=== PATIENT | male | born 1965 | race Caucasian/White ===

== ENCOUNTER 2017-02-02 15:14 | Emergency (ER) | payer BC ==
[2017-02-02] MEDS ORDERED: Tylenol #3 Tablet PO ONE (15:47)
[2017-02-02] MEDS ORDERED: Tylenol #3 Tablet ONE (15:49)
--- NOTE | 2017-02-02 15:49 | ERPHSYRPT ---
- History of Present Illness Time Seen by Provider: 02/02/17 15:38 Source: patient Exam Limitations: clinical condition Patient Subjective Stated Complaint: PT REPORTS PAIN TO LEFT ANKLE BEGINNING YESTERDAY-DENIES INJURY-DENIES NUMBNESS OR TINLGING Triage Nursing Assessment: PT PINK WARM ET DRY-NO OBVIOUS INJURY-NO BRUISING OR ABRASIONS-NO SWELLING OR REDNESS NOTED-PEDAL PULSE REGULAR Physician History: PATIENT WITH HISTORY OF HYPERTENSION AND ASTHMA COMPLAINS OF PAIN WITH SWELLING ABOVE LEFT ANKLE OVER THE PAST 3-4 DAYS, WORSE UPON WEIGHT BEARING. DENIES INJURY OR TRAUMA. Method of Injury: unknown Occurred: days ago Quality: constant, throbbing Severity of Pain-Max: moderate Severity of Pain-Current: moderate Lower Extremities Pain: leg: left, ankle: left Modifying Factors: Improves With: movement, other (WEIGHT BEARING) Allergies/Adverse Reactions: Antihistamines - Alkylamine Adverse Reaction (Verified 02/02/17 15:25) Tightness of Throat aspartame Adverse Reaction (Verified 02/02/17 15:25) Swelling of Tongue and Lips Home Medications: Telmisartan 40 mg PO DAILY 11/02/15 [History] Hx Tetanus, Diphtheria Vaccination/Date Given: Yes Hx Influenza Vaccination/Date Given: No Hx Pneumococcal Vaccination/Date Given: No Immunizations Up to Date: Yes - Review of Systems Constitutional: No Fever, No Chills Eyes: No Symptoms Ears, Nose, & Throat: No Symptoms Respiratory: No Cough, No Dyspnea Cardiac: No Chest Pain, No Edema, No Syncope Abdominal/Gastrointestinal: No Abdominal Pain, No Nausea, No Vomiting, No Diarrhea Genitourinary Symptoms: No Dysuria Musculoskeletal: Joint Pain, Joint Swelling, No Back Pain, No Neck Pain Skin: No Rash Neurological: No Dizziness, No Focal Weakness, No Sensory Changes Psychological: No Symptoms Endocrine: No Symptoms All Other Systems: Reviewed and Negative - Past Medical History Pertinent Past Medical History: Yes Neurological History: Migraines ENT History: No Pertinent History Cardiac History: Hypertension Respiratory History: Asthma, Pneumonia Endocrine Medical History: No Pertinent History Musculoskeletal History: Arthritis, Fractures, Rheumatoid Arthritis GI Medical History: Hernia History: No Pertinent History Psycho-Social History: No Pertinent History Male Reproductive Disorders: No Pertinent History Other Medical History: patient had surgery in June 2015 to repair a herniated disk in the neck and a titanium plate was put in. - Past Surgical History Past Surgical History: Yes Neuro Surgical History: No Pertinent History Cardiac: No Pertinent History Respiratory: No Pertinent History Gastrointestinal: No Pertinent History Genitourinary: No Pertinent History Musculoskeletal: No Pertinent History Male Surgical History: No Pertinent History Other Surgical History: Patient had T&A as a child 1970. Patient states he had a fractured tail bone, but could not remember when. Patient had left lower leg surgery to remove an infected splinter from leg in 2005. Patient also states he had a hernia as a child but does not remember what was done about. - Social History Smoking Status: Former smoker How long have you smoked: occational Exposure to second hand smoke: No Drug Use: none Patient Lives Alone: No - Nursing Vital Signs Nursing Vital Signs: Initial Vital Signs Temperature 98.9 F Temperature Source Oral Pulse Rate 70 Respiratory Rate 20 Blood Pressure [] 130/62 Pain Intensity 7 - Physical Exam General Appearance: no apparent distress Legs Exam: left leg: soft tissue tenderness (DISTAL 3RD CALF AND GARNER WITH 2+ SWELLING), swelling Ankle Exam: left ankle: non-tender, normal inspection, normal range of motion Neuro/Tendon Exam: normal sensation SpO2 Interpretation: normal SpO2: 98 Oxygen Delivery: Room Air - Radiology Exams Left Ankle X-ray Interpretation: Interpreted by me, Negative, No Fracture (NO DISLOCATION) - Radiology Ultrasound Exam Left Venous Lower Extremity Ultrasound: discussed w/radiologist (NO EVIDENCE OF DVT) Ordered Tests: Active Orders 24 hr Category Date Time Status Crutches STAT Care 02/02/17 16:55 Inactive Splint STAT Care 02/02/17 16:56 Active ANKLE (3 VIEWS) Stat Exams 02/02/17 16:16 Completed VENOUS UNILAT/LIMITED EXTREMIT [US] Stat Exams 02/02/17 15:42 Completed Medication Summary Discontinued Medications Generic Name Dose Route Start Last Admin Trade Name Freq PRN Reason Stop Dose Admin Acetaminophen/Codeine Phosphate 2 tab 02/02/17 15:47 02/02/17 16:07 Tylenol #3 Tablet PO 02/02/17 15:48 2 tab STAT ONE Administration Acetaminophen/Codeine Phosphate Confirm 02/02/17 15:49 Tylenol #3 Tablet Administered 02/02/17 15:50 Dose 2 tab .ROUTE .STK-MED ONE - Progress Progress Note: 02/02/17 16:53 THE VENOUS DOPPLER OF THE LEFT LOWER EXTREMITY IS NEGATIVE. X-RAY OF LEFT ANKLE C/W NO EVIDENCE OF FRACTURE OR DISLOCATION. PATIENT PLACED IN LEFT ANKLE VELCRO SPLINT. PATIENT HAS CRUTCHES AT HOME 02/02/17 17:01 Counseled pt/family regarding: diagnosis, need for follow-up, rad results - Departure Time of Disposition: 17:05 Departure Disposition: Home Clinical Impression: LEFT LOWER EXTREMITY PAIN Condition: Stable Critical Care Time: No Critical Care Time(excluding separately billable procedures): 30-74 minutes Referrals: CODY HERNANDEZ [Primary Care Provider] - Additional Instructions: AMBULATE USING CRUTCHES NONWEIGHT BEARING LEFT FOOT FOR 4 DAYS. ELEVATE FOOT ABOVE WAIST WHILE SITTING OR SUPINE POSITION. CONSULT YOUR FAMILY PHYSICIAN FOR EVALUATION THIS WEEK. CONTINUE NAPROSYN FOR PAIN. TYLENOL #3 EVERY 4 HOURS FOR SEVERE PAIN. Prescriptions: Codeine Phosphate/APAP #3 [Tylenol #3 Tablet] 1 tab PO Q4-6HPRN PRN #15 tablet PRN Reason: Pain
--- NOTE | 2017-02-02 16:30 | XRAY ---
Exam: Duplex Doppler venous ultrasound examination of the left lower extremity from 02/02/2017. Comparison: Left lower extremity duplex Doppler venous ultrasound exam from 11/02/2015. Indication: Left leg swelling, pain and swelling within left smith, rule out DVT. Findings: Doppler venous ultrasound examination of the left lower extremity was carried out in the usual manner. Yun scale, color flow, and Doppler images of the left lower extremity were obtained including the left common femoral vein, proximal greater saphenous vein, superficial femoral vein, profunda femoral vein, popliteal vein, and distal posterior tibial veins. Normal transducer compression and Doppler signal augmentation were seen. No echogenic thrombus was identified. There does appear to be superficial soft tissue swelling overlying the distal left lower leg. Impression: 1. No sonographic or Doppler evidence of deep venous thrombosis is seen within the left lower extremity. This is unchanged from 11/02/2015. 2. Some soft tissue swelling is seen overlying the left calf.
--- NOTE | 2017-02-02 17:00 | XRAY ---
Exam: 3 view left ankle series from 02/02/2017. Comparison: 3 view left ankle series from 11/02/2015. Indication: Left ankle pain, no known injury. Findings: AP, oblique, and lateral radiographs are submitted for evaluation. The patient is again noted to have a high plantar arch of the hindfoot representing no change. I see no acute fracture or dislocation about the left ankle. The left ankle mortise is well-preserved and is uniform. The subtalar joint appears normal. No calcaneal spurring is seen. No radiopaque soft tissue foreign body is seen. Impression: 1. No significant bone or joint abnormality of the left ankle is seen. I again note a high plantar arch of the left hindfoot representing no change from 11/02/2015.
[2017-02-02 17:11] VITALS: BP 130/62; PULSE 70
[2017-02-02 17:26] VITALS: O2SAT 98
== END 2017-02-02 17:19 | disposition home or self-care (01) ==
LOC: ED 15:14
DX: M79.662 Pain in left lower leg (principal); M25.572 Pain in left ankle and joints of left foot; I10 Essential (primary) hypertension
CPT/HCPCS: 73610; 93971; 99283; A9270-GY

== ENCOUNTER 2017-03-27 19:32 | Observation (INO) | payer BC ==
[2017-03-27] MEDS ORDERED: Sodium Chloride 0.9% 1000 ML 1,000 ML IV STA (19:46)
[2017-03-27] MEDS ORDERED: TORAdol 30 mg Injection IV ONE (19:46)
[2017-03-27] MEDS ORDERED: Zofran 4 MG/2 ML VIAL IV ONE (19:46)
[2017-03-27] MEDS ORDERED: BENADRYL 50 MG/ML IV ONE ×2 (19:46→21:09)
[2017-03-27] MEDS ORDERED: Ativan 1 MG PO ONE (19:50)
[2017-03-27] MEDS ORDERED: ROCEPHIN 1 Gm-D5w 50 ml Bag** 1 G/50 ML IVPB IV STA (19:52)
--- NOTE | 2017-03-27 19:58 | ERPHSYRPT ---
- History of Present Illness Time Seen by Provider: 03/27/17 19:53 Source: patient, family Exam Limitations: no limitations Physician History: pt has had chornic left great toe problem and started bactrim one week ago for this now today having itching all over - prior problem with antihistamine but ayanna benadryl OK in past ; tender left great toe with erythema non fluctuance to drain - also having pain all over with his usual chornic pain syndrome which seems increased and chills feeling; Timing/Duration: yesterday Severity: moderate Modifying Factors: Improves With: nothing Associated Symptoms: nausea, chills, malaise Allergies/Adverse Reactions: Antihistamines - Alkylamine Adverse Reaction (Verified 03/27/17 20:51) Tightness of Throat aspartame Adverse Reaction (Verified 03/27/17 20:51) Swelling of Tongue and Lips Home Medications: Telmisartan 40 mg PO DAILY 11/02/15 [History] Sulfamethoxazole/Trimethoprim [Bactrim Ds Tablet] 1 tab PO BID 03/27/17 [History ] Hx Tetanus, Diphtheria Vaccination/Date Given: Yes Hx Influenza Vaccination/Date Given: No Hx Pneumococcal Vaccination/Date Given: No - Review of Systems Constitutional: Chills, Fatigue, Malaise Eyes: No Symptoms Ears, Nose, & Throat: No Symptoms Respiratory: No Cough, No Dyspnea Cardiac: No Chest Pain, No Edema, No Syncope Abdominal/Gastrointestinal: Nausea, No Abdominal Pain, No Vomiting, No Diarrhea Genitourinary Symptoms: No Dysuria Musculoskeletal: Back Pain, Myalgias, No Neck Pain Skin: No Rash Neurological: No Dizziness, No Focal Weakness, No Sensory Changes Psychological: No Symptoms Endocrine: No Symptoms All Other Systems: Reviewed and Negative - Past Medical History Pertinent Past Medical History: Yes Neurological History: Migraines ENT History: No Pertinent History Cardiac History: Hypertension Respiratory History: Asthma, Pneumonia Endocrine Medical History: No Pertinent History Musculoskeletal History: Arthritis, Fractures, Rheumatoid Arthritis GI Medical History: Hernia History: No Pertinent History Psycho-Social History: No Pertinent History Male Reproductive Disorders: No Pertinent History Other Medical History: patient had surgery in June 2015 to repair a herniated disk in the neck and a titanium plate was put in. - Past Surgical History Past Surgical History: Yes Neuro Surgical History: No Pertinent History Cardiac: No Pertinent History Respiratory: No Pertinent History Gastrointestinal: No Pertinent History Genitourinary: No Pertinent History Musculoskeletal: No Pertinent History Male Surgical History: No Pertinent History Other Surgical History: Patient had T&A as a child 1970. Patient states he had a fractured tail bone, but could not remember when. Patient had left lower leg surgery to remove an infected splinter from leg in 2005. Patient also states he had a hernia as a child but does not remember what was done about. - Social History Smoking Status: Former smoker How long have you smoked: occational Exposure to second hand smoke: No Drug Use: none Patient Lives Alone: No - Nursing Vital Signs Nursing Vital Signs: Initial Vital Signs Temperature 98.5 F 03/27/17 19:43 Pulse Rate 72 03/27/17 19:43 Respiratory Rate 20 03/27/17 19:43 Blood Pressure 138/76 03/27/17 19:43 O2 Sat by Pulse Oximetry 97 03/27/17 19:43 Pain Scale Pain Intensity [] 8 Pain Intensity 5 - Physical Exam General Appearance: no apparent distress, alert Eye Exam: PERRL/EOMI, eyes nml inspection Ears, Nose, Throat Exam: normal ENT inspection, TMs normal, pharynx normal, moist mucous membranes Neck Exam: normal inspection, non-tender, supple, full range of motion Respiratory Exam: normal breath sounds, lungs clear, No respiratory distress Cardiovascular Exam: regular rate/rhythm, normal heart sounds, normal peripheral pulses Gastrointestinal/Abdomen Exam: soft, normal bowel sounds, No tenderness, No mass Rectal Exam: deferred Back Exam: normal inspection, normal range of motion, No CVA tenderness, No vertebral tenderness Extremity Exam: normal inspection, normal range of motion, pelvis stable, swelling, tenderness (leftg great toe ) Neurologic Exam: alert, oriented x 3, cooperative, normal mood/affect, nml cerebellar function, nml station & gait, sensation nml, No motor deficits Skin Exam: normal color, warm, dry, No rash Lymphatic Exam: No adenopathy SpO2: 97 Oxygen Delivery: Room Air - Course Nursing assessment & vital signs reviewed: Yes EKG Interpreted by Me: Sinus Rhythm, NORMAL AXIS, NORMAL INTERVALS, Non- specific ST Changes, Other (poor r wave sim to prev.) - Radiology Exams Foot X-ray Interpretation: Reviewed by me, No Fracture, Other (no obvious osteo left foot ) Ordered Tests: Active Orders 24 hr Category Date Time Status Accucheck STAT Care 03/27/17 19:46 Active Clean Catch Urine Specimen STAT Care 03/27/17 19:51 Active EKG-ER Only STAT Care 03/27/17 19:46 Active IV Insertion STAT Care 03/27/17 19:46 Active FOOT (MINIMUM 3 VIEWS) Stat Exams 03/27/17 19:51 Completed BLOOD CULTURE Stat Lab 03/27/17 20:13 Received CBC W DIFF Stat Lab 03/27/17 19:59 Completed CMP Stat Lab 03/27/17 19:59 Completed CULTURE,URINE Stat Lab 03/27/17 19:59 Received ESR [Erythrocyte Sedimentation Rate] Stat Lab 03/27/17 19:59 Completed Lactic Acid Stat Lab 03/27/17 20:01 Completed TROPONIN Q3H Lab 03/27/17 20:00 Completed TROPONIN Q3H Lab 03/27/17 23:00 Ordered TROPONIN Q3H Lab 03/28/17 02:00 Ordered TROPONIN Q3H Lab 03/28/17 05:00 Ordered TROPONIN Q3H Lab 03/28/17 08:00 Ordered UA W/ MICROSCOPIC Stat Lab 03/27/17 19:59 Completed Medication Summary Discontinued Medications Generic Name Dose Route Start Last Admin Trade Name Freq PRN Reason Stop Dose Admin Diphenhydramine HCl 25 mg 03/27/17 19:46 03/27/17 20:12 Benadryl 50 Mg/Ml IV 03/27/17 19:47 25 mg STAT ONE Administration Diphenhydramine HCl Confirm 03/27/17 20:06 Benadryl 50 Mg/Ml Administered 03/27/17 20:07 Dose 50 mg .ROUTE .STK-MED ONE Diphenhydramine HCl 25 mg 03/27/17 21:09 03/27/17 21:21 Benadryl 50 Mg/Ml IV 03/27/17 21:10 25 mg STAT ONE Administration Sodium Chloride 1,000 mls @ 999 mls/hr 03/27/17 19:46 03/27/17 20:13 Sodium Chloride 0.9% 1000 Ml IV 03/27/17 20:46 999 mls/hr .Q1H1M STA Administration Ceftriaxone Sodium/Dextrose 1 g in 50 mls @ 100 mls/hr 03/27/17 19:52 20:13 Rocephin 1 Gm-D5w 50 Ml Bag IV 03/27/17 20:21 100 mls/hr STAT STA Administration Sodium Chloride Confirm 03/27/17 20:07 Sodium Chloride 0.9% 1000 Ml Administered 03/27/17 20:08 Dose 1,000 mls @ ud .ROUTE .STK-MED ONE Ceftriaxone Sodium/Dextrose Confirm 03/27/17 20:07 Rocephin 1 Gm-D5w 50 Ml Bag Administered 03/27/17 20:08 Dose 1 g in 50 mls @ ud IV .STK-MED ONE Ketorolac Tromethamine 30 mg 03/27/17 19:46 03/27/17 20:13 Toradol 30 Mg Injection IV 03/27/17 19:47 30 mg STAT ONE Administration Ketorolac Tromethamine Confirm 03/27/17 20:06 Toradol 30 Mg Injection Administered 03/27/17 20:07 Dose 30 mg .ROUTE .STK-MED ONE Lorazepam 1 mg 03/27/17 19:50 03/27/17 20:12 Ativan 1 Mg PO 03/27/17 19:51 1 mg STAT ONE Administration Lorazepam Confirm 03/27/17 20:07 Ativan 1 Mg Administered 03/27/17 20:08 Dose 1 mg .ROUTE .STK-MED ONE Methylprednisolone Sodium Succinate 40 mg 03/27/17 21:08 03/27/17 21:21 Solu-Medrol 40 Mg IV 03/27/17 21:09 40 mg STAT ONE Administration Ondansetron HCl 4 mg 03/27/17 19:46 03/27/17 20:13 Zofran 4 Mg/2 Ml Vial IV 03/27/17 19:47 4 mg STAT ONE Administration Ondansetron HCl Confirm 03/27/17 20:06 Zofran 4 Mg/2 Ml Vial Administered 03/27/17 20:07 Dose 4 mg .ROUTE .STK-MED ONE Lab/Rad Data: Laboratory Result Diagrams 03/27/17 19:59 03/27/17 19:59 Laboratory Results 03/27/17 03/27/17 03/27/17 Range/Units 20:13 20:01 20:00 WBC (4.0-10.5) K/mm3 RBC (4.1-5.6) M/mm3 Hgb (12.5-18.0) gm/dl Hct (42-50) % MCV (78-100) fl MCH (26-32) pg MCHC (32-36) g/dl RDW (11.5-14.0) % Plt Count (150-450) K/mm3 MPV (6-9.5) fl Gran % (36.0-66.0) % Lymphocytes % (24.0-44.0) % Monocytes % (0.0-12.0) % Eosinophils % (0.00-5.0) % Basophils % (0.0-0.4) % Basophils # (0-0.4) ESR (0-15) mm/hr Sodium (136-145) mEq/L Potassium (3.5-5.1) mEq/L Chloride (98-107) mEq/L Carbon Dioxide (21-32) mEq/L Anion Gap (5-15) MEQ/L BUN (9-20) mg/dL Creatinine (0.55-1.30) mg/dl Estimated GFR ML/MIN Glucose (70-110) MG/DL Lactic Acid 1.5 (0.4-2.0) Calcium (8.5-10.1) mg/dL Total Bilirubin (0.2-1.0) mg/dL AST (15-37) U/L ALT (12-78) U/L Alkaline Phosphatase (46-116) U/L Troponin I < 0.017 (0.000-0.056) ng/ml Serum Total Protein (6.4-8.2) gm/dL Albumin (3.4-5.0) g/dL Ur Collection Type Urine Color (YELLOW) Urine Appearance (CLEAR) Urine pH (5-6) Ur Specific [place] (1.005-1.025) Urine Protein (Negative) Urine Ketones (NEGATIVE) Urine Blood (0-5) Aashish/ul Urine Nitrite (NEGATIVE) Urine Bilirubin (NEGATIVE) Urine Urobilinogen (0-1) mg/dL Ur Leukocyte Esterase (NEGATIVE) Urine Microscopic RBC (0-2) /HPF Urine Microscopic WBC (0-5) /HPF Ur Epithelial Cells (FEW) /HPF Urine Bacteria (NEGATIVE) /HPF Urine Mucus (NEGATIVE) /HPF Urine Glucose (NEGATIVE) mg/dL Influenza Type A Ag NEGATIVE (NEGATIVE) Influenza Type B Ag NEGATIVE (NEGATIVE) RSV (PCR) NEGATIVE (Negative) Specimen Received 03/27/17 03/27/17 03/27/17 Range/Units 19:59 19:59 19:59 WBC (4.0-10.5) K/mm3 RBC (4.1-5.6) M/mm3 Hgb (12.5-18.0) gm/dl Hct (42-50) % MCV (78-100) fl MCH (26-32) pg MCHC (32-36) g/dl RDW (11.5-14.0) % Plt Count (150-450) K/mm3 MPV (6-9.5) fl Gran % (36.0-66.0) % Lymphocytes % (24.0-44.0) % Monocytes % (0.0-12.0) % Eosinophils % (0.00-5.0) % Basophils % (0.0-0.4) % Basophils # (0-0.4) ESR 12 (0-15) mm/hr Sodium 139 (136-145) mEq/L Potassium 3.8 (3.5-5.1) mEq/L Chloride 104 (98-107) mEq/L Carbon Dioxide 27.5 (21-32) mEq/L Anion Gap 11.7 (5-15) MEQ/L BUN 12 (9-20) mg/dL Creatinine 1.08 (0.55-1.30) mg/dl Estimated GFR > 60 ML/MIN Glucose 115 H (70-110) MG/DL Lactic Acid (0.4-2.0) Calcium 8.4 L (8.5-10.1) mg/dL Total Bilirubin 0.30 (0.2-1.0) mg/dL AST 25 (15-37) U/L ALT 24 (12-78) U/L Alkaline Phosphatase 85 (46-116) U/L Troponin I (0.000-0.056) ng/ml Serum Total Protein 7.6 (6.4-8.2) gm/dL Albumin 3.6 (3.4-5.0) g/dL Ur Collection Type VOID Urine Color YELLOW (YELLOW) Urine Appearance CLEAR (CLEAR) Urine pH 5.0 (5-6) Ur Specific [place] 1.025 (1.005-1.025) Urine Protein NEGATIVE (Negative) Urine Ketones NEGATIVE (NEGATIVE) Urine Blood 50 (0-5) Aashish/ul Urine Nitrite NEGATIVE (NEGATIVE) Urine Bilirubin NEGATIVE (NEGATIVE) Urine Urobilinogen NORMAL (0-1) mg/dL Ur Leukocyte Esterase TRACE (NEGATIVE) Urine Microscopic RBC 5-10 (0-2) /HPF Urine Microscopic WBC 5-10 (0-5) /HPF Ur Epithelial Cells FEW (FEW) /HPF Urine Bacteria MODERATE (NEGATIVE) /HPF Urine Mucus MODERATE (NEGATIVE) /HPF Urine Glucose NEGATIVE (NEGATIVE) mg/dL Influenza Type A Ag (NEGATIVE) Influenza Type B Ag (NEGATIVE) RSV (PCR) (Negative) Specimen Received 03/27/17201403/27/17 Range/Units 19:59 WBC 5.8 (4.0-10.5) K/mm3 RBC 4.98 (4.1-5.6) M/mm3 Hgb 14.6 (12.5-18.0) gm/dl Hct 43.7 (42-50) % MCV 87.8 (78-100) fl MCH 29.3 (26-32) pg MCHC 33.4 (32-36) g/dl RDW 14.4 H (11.5-14.0) % Plt Count 191 (150-450) K/mm3 MPV 9.5 (6-9.5) fl Gran % 68.9 H (36.0-66.0) % Lymphocytes % 15.9 L (24.0-44.0) % Monocytes % 7.6 (0.0-12.0) % Eosinophils % 7.1 H (0.00-5.0) % Basophils % 0.5 (0.0-0.4) % Basophils # 0.03 (0-0.4) ESR (0-15) mm/hr Sodium (136-145) mEq/L Potassium (3.5-5.1) mEq/L Chloride (98-107) mEq/L Carbon Dioxide (21-32) mEq/L Anion Gap (5-15) MEQ/L BUN (9-20) mg/dL Creatinine (0.55-1.30) mg/dl Estimated GFR ML/MIN Glucose (70-110) MG/DL Lactic Acid (0.4-2.0) Calcium (8.5-10.1) mg/dL Total Bilirubin (0.2-1.0) mg/dL AST (15-37) U/L ALT (12-78) U/L Alkaline Phosphatase (46-116) U/L Troponin I (0.000-0.056) ng/ml Serum Total Protein (6.4-8.2) gm/dL Albumin (3.4-5.0) g/dL Ur Collection Type Urine Color (YELLOW) Urine Appearance (CLEAR) Urine pH (5-6) Ur Specific [place] (1.005-1.025) Urine Protein (Negative) Urine Ketones (NEGATIVE) Urine Blood (0-5) Aashish/ul Urine Nitrite (NEGATIVE) Urine Bilirubin (NEGATIVE) Urine Urobilinogen (0-1) mg/dL Ur Leukocyte Esterase (NEGATIVE) Urine Microscopic RBC (0-2) /HPF Urine Microscopic WBC (0-5) /HPF Ur Epithelial Cells (FEW) /HPF Urine Bacteria (NEGATIVE) /HPF Urine Mucus (NEGATIVE) /HPF Urine Glucose (NEGATIVE) mg/dL Influenza Type A Ag (NEGATIVE) Influenza Type B Ag (NEGATIVE) RSV (PCR) (Negative) Specimen Received - Progress Progress: improved, re-examined Progress Note: 03/27/17 22:15 discussed with pt and Dr. Winston covering for [place]; will place pt in on obs change AB, and also some steroids; lovenox for proph Discussed with : Tish Will see patient in: hospital (observation) Counseled pt/family regarding: lab results, diagnosis, need for follow-up, rad results - Departure Time of Disposition: 22:21 Departure Disposition: Observation Clinical Impression: Allergic reaction, Hematuria, flu like illness Condition: Good Critical Care Time: No Referrals: CODY HERNANDEZ [Primary Care Provider] -
[2017-03-27] MEDS ORDERED: TORAdol 30 mg Injection ONE (20:06)
[2017-03-27] MEDS ORDERED: BENADRYL 50 MG/ML ONE (20:06)
[2017-03-27] MEDS ORDERED: Zofran 4 MG/2 ML VIAL ONE (20:06)
[2017-03-27] MEDS ORDERED: ROCEPHIN 1 Gm-D5w 50 ml Bag** 1 G/50 ML IVPB IV ONE (20:07)
[2017-03-27] MEDS ORDERED: Ativan 1 MG ONE (20:07)
[2017-03-27] MEDS ORDERED: Sodium Chloride 0.9% 1000 ML 1,000 ML ONE (20:07)
[2017-03-27 20:19] LABS: BASOPHIL % 0.5 % (0.0-0.4); Eosinophil % 7.1 % (0.00-5.0); Granulocytes % 68.9 % (36.0-66.0); Lymphocytes % 15.9 % (24.0-44.0); Mean Cell Volume 87.8 fl (78-100); Mean Corpuscular Hemoglobin 29.3 pg (26-32); Mean Platelet Volume 9.5 fl (6-9.5); Monocytes % 7.6 % (0.0-12.0); Platelet Count 191 K/mm3 (150-450); Red Blood Count 4.98 M/mm3 (4.1-5.6); Red Cell Distribution Width 14.4 % (11.5-14.0); White Blood Count 5.8 K/mm3 (4.0-10.5)
[2017-03-27 20:28] LABS: ALBUMIN 3.6 g/dL (3.4-5.0); ALKALINE PHOSPHATASE 85 U/L (46-116); ANION GAP 11.7 MEQ/L (5-15); BLOOD UREA NITROGEN 12 mg/dL (9-20); CHLORIDE 104 mEq/L (98-107); Carbon Dioxide 27.5 mEq/L (21-32); Glucose 115 MG/DL (70-110); Potassium 3.8 mEq/L (3.5-5.1); SGOT/AST 25 U/L (15-37); SGPT/ALT 24 U/L (12-78); SODIUM 139 mEq/L (136-145); Total Protein 7.6 gm/dL (6.4-8.2)
[2017-03-27 20:35] LABS: Collection Type VOID
[2017-03-27 20:36] LABS: ADD URINE CULTURE? YES (NO); Bacteria MODERATE /HPF (NEGATIVE); Bilirubin NEGATIVE (NEGATIVE); Blood 50 Ery/ul (0-5); COMPLETE URINE MICROSCOPIC? YES; Epithelial Cells FEW /HPF (FEW); Glucose NEGATIVE (NEGATIVE); Leukocyte Esterase TRACE (NEGATIVE); Mucus MODERATE /HPF (NEGATIVE)
--- NOTE | 2017-03-27 20:53 | XRAY ---
Indication: Great toe infection. Comparison: November 02, 2015. 3 nonweightbearing views of the right foot obtained. No new/acute bony, articular, or soft tissue abnormalities.
[2017-03-27] MEDS ORDERED: solu-MEDROL 40 MG IV ONE ×2 (21:08→22:45)
[2017-03-27] MEDS ORDERED: MILK OF MAGNESIA 30 ML PO PRN (22:45)
[2017-03-27] MEDS ORDERED: Senokot-S Tablet PO PRN (22:45)
[2017-03-27] MEDS ORDERED: MAALOX ES 30 ML UNIT DOSE PO PRN (22:45)
[2017-03-27] MEDS ORDERED: TYLENOL 325 MG PO PRN (22:45)
[2017-03-27] MEDS ORDERED: NovoLIN R SQ PRN (22:45)
[2017-03-27] MEDS ORDERED: MORPHINE SULFATE 2 MG INJ IV PRN (22:45)
[2017-03-27] MEDS ORDERED: Zofran 4 MG/2 ML VIAL IV PRN (22:45)
[2017-03-28] MEDS: Sodium Chloride 0.9% 1000 ML 1,000 ML IV SCH ×2 (00:23→06:56)
[2017-03-28] MEDS ORDERED: solu-MEDROL 40 MG IV ONE (03:30)
[2017-03-28 05:56] LABS: Mean Cell Volume 89.1 fl (78-100); Mean Corpuscular Hemoglobin 29.3 pg (26-32); Mean Platelet Volume 9.7 fl (6-9.5); Platelet Count 207 K/mm3 (150-450); Red Blood Count 4.95 M/mm3 (4.1-5.6); Red Cell Distribution Width 14.2 % (11.5-14.0); White Blood Count 3.2 K/mm3 (4.0-10.5)
[2017-03-28 07:27] VITALS: BP 173/94; PULSE 60; O2SAT 97
[2017-03-28 07:58] LABS: BAND 2 % (0.0-2.0); Platelet Estimate NORMAL (NORMAL); Total Cells Counted 100
--- NOTE | 2017-03-28 09:24 | PCM.SSS ---
History of Present Illness - Chief Complaint Chief Complaint: Allergic reaction, flu-like illness History of Present Illness: is a 51 year old male who presented with a rash and itching, had been on bactrim for a toe infection for a week prior. His rash was minimal, both the rash and itching have resolved today. He still has soreness in his left great toe, has f/u with podiatry in 3 days. wants released today to return to work tomorrow. - Review of Systems Constitutional: No Fever, No Chills Respiratory: No Cough, No Short Of Breath Cardiac: No Chest Pain, No Edema, No Syncope Skin: Pruritis, Rash All Other Systems: Reviewed and Negative Medications & Allergies Home Medications: Home Medication List Telmisartan 40 mg PO DAILY 11/02/15 [History Confirmed 03/27/17] Aspirin 81 gm Chew [Baby Aspirin 81 mg Chew] 81 mg PO DAILY #0 tab.chew [Rx Confirmed 03/27/17] Glucosam/Chond/Collagen/Hyalur [Glucosamine Chondroitin Cap] 1 each PO DAILY 10/08 [History Confirmed 03/27/17] Naproxen [Naprosyn] 500 mg PO BID PRN PRN 03/27/17 [History Confirmed 03/27/17] Ciprofloxacin [Cipro 500 MG] 500 mg PO BID #14 tablet 03/28/17 [Rx] Methylprednisolone [Medrol Dose Pack] 4 mg PO UD #1 pack 03/28/17 [Rx] Allergies/Adverse Reactions: Allergies Allergy/AdvReac Type Severity Reaction Status Date / Time sulfamethoxazole Allergy Verified 03/28/17 09:18 [From Bactrim] trimethoprim [From Bactrim] Allergy Verified 03/28/17 09:18 Antihistamines - Alkylamine AdvReac Tightness Verified 03/27/17 20:51 of Throat aspartame AdvReac Swelling Verified 03/27/17 20:51 of Tongue and Lips - Past Medical History Past Medical History: Yes Neurological History: Migraines ENT History: No Pertinent History Cardiac History: Hypertension Respiratory History: Asthma, Pneumonia Endocrine Medical History: No Pertinent History Musculoskelatal History: Arthritis, Fractures, Rheumatoid Arthritis GI Medical History: Hernia History: No Pertinent History Pyscho-Social History: No Pertinent History Male Reproductive Disorders: No Pertinent History Comment: patient had surgery in June 2015 to repair a herniated disk in the neck and a titanium plate was put in. - Past Surgical History Past Surgical History: Yes Neuro Surgical History: No Pertinent History Cardiac History: No Pertinent History Respiratory Surgery: No Pertinent History GI Surgical History: No Pertinent History Genitourinary Surgical Hx: No Pertinent History Musculskeletal Surgical Hx: No Pertinent History Male Surgical History: No Pertinent History Other Surgical History: Patient had T&A as a child 1970. Patient states he had a fractured tail bone, but could not remember when. Patient had left lower leg surgery to remove an infected splinter from leg in 2005. Patient also states he had a hernia as a child but does not remember what was done about. - Social History Smoking Status: Former smoker How long have you smoked: occational Exposure to second hand smoke: No Alcohol: Occasionally Drug Use: none - Physical Exam Vital Signs: Vital Signs - 24 hr Temp Pulse Resp BP Pulse Ox 03/28/17 07:25 97.9 F 60 20 173/94 97 03/28/17 04:00 98.0 F 66 19 177/79 94 L 03/28/17 02:05 95 03/27/17 23:17 98.4 F 63 20 154/65 93 L Oxygen-Last 24 hours O2 Percentage 2 Liters = 28% O2 Percentage 2 Liters = 28% General Appearance: no apparent distress, alert Respiratory Exam: normal breath sounds, lungs clear, No respiratory distress Cardiovascular Exam: regular rate/rhythm, normal heart sounds, normal peripheral pulses Gastrointestinal/Abdomen Exam: soft, normal bowel sounds, No tenderness, No mass Skin Exam: normal color, No rash Results - Labs Lab/Micro Results: Accuchecks Date 03/28/17 Time 07:30 Accucheck Value: 135 Lab Results-Last 24 Hours 03/27/17 03/28/17 03/28/17 Range/Units 23:08 02:38 05:00 WBC (4.0-10.5) K/mm3 RBC (4.1-5.6) M/mm3 Hgb (12.5-18.0) gm/dl Hct (42-50) % MCV (78-100) fl MCH (26-32) pg MCHC (32-36) g/dl RDW (11.5-14.0) % Plt Count (150-450) K/mm3 MPV (6-9.5) fl Segmented Neutrophils (36.-66.) % Band Neutrophils (0.0-2.0) % Lymphocytes (Manual) (24-44) % Monocytes (Manual) (0.0-12.0) % Differential Comment Platelet Estimate (NORMAL) Hemoglobin A1c (4.5-6.2) Troponin I < 0.017 < 0.017 < 0.017 (0.000-0.056) ng/ml Triglycerides (30-200) mg/dL Cholesterol (100-200) mg/dL LDL Cholesterol (5-99) mg/dL HDL Cholesterol (35-60) mg/dL Heart Disease Risk Ratio 03/28/17 03/28/17 03/28/17 Range/Units 05:00 05:00 05:00 WBC 3.2 L (4.0-10.5) K/mm3 RBC 4.95 (4.1-5.6) M/mm3 Hgb 14.5 (12.5-18.0) gm/dl Hct 44.1 (42-50) % MCV 89.1 (78-100) fl MCH 29.3 (26-32) pg MCHC 32.9 (32-36) g/dl RDW 14.2 H (11.5-14.0) % Plt Count 207 (150-450) K/mm3 MPV 9.7 H (6-9.5) fl Segmented Neutrophils 80 H (36.-66.) % Band Neutrophils 2 (0.0-2.0) % Lymphocytes (Manual) 12 L (24-44) % Monocytes (Manual) 6 (0.0-12.0) % Differential Comment NORMAL Platelet Estimate NORMAL (NORMAL) Hemoglobin A1c 5.1 (4.5-6.2) Troponin I (0.000-0.056) ng/ml Triglycerides 51 (30-200) mg/dL Cholesterol 125 (100-200) mg/dL LDL Cholesterol 83 (5-99) mg/dL HDL Cholesterol 33 L (35-60) mg/dL Heart Disease Risk Ratio 3.8 03/28/17 Range/Units 08:06 WBC (4.0-10.5) K/mm3 RBC (4.1-5.6) M/mm3 Hgb (12.5-18.0) gm/dl Hct (42-50) % MCV (78-100) fl MCH (26-32) pg MCHC (32-36) g/dl RDW (11.5-14.0) % Plt Count (150-450) K/mm3 MPV (6-9.5) fl Segmented Neutrophils (36.-66.) % Band Neutrophils (0.0-2.0) % Lymphocytes (Manual) (24-44) % Monocytes (Manual) (0.0-12.0) % Differential Comment Platelet Estimate (NORMAL) Hemoglobin A1c (4.5-6.2) Troponin I < 0.017 (0.000-0.056) ng/ml Triglycerides (30-200) mg/dL Cholesterol (100-200) mg/dL LDL Cholesterol (5-99) mg/dL HDL Cholesterol (35-60) mg/dL Heart Disease Risk Ratio Accuchecks Date 03/28/17 Time 07:30 Accucheck Value: 135 - Other Procedures and Tests Respiratory Therapy 03/28/17 02:05 Oxygen NASAL CANNULA 2 lpm 03/29/17 05:00 EKG DAILY 03/30/17 05:00 EKG DAILY 03/31/17 05:00 EKG DAILY Assessment/Plan (1) Allergic reaction Current Visit: Yes Status: Acute Code(s): T78.40XA - ALLERGY, UNSPECIFIED, INITIAL ENCOUNTER (2) Left foot pain Current Visit: No Status: Acute Code(s): M79.672 - PAIN IN LEFT FOOT Hospital Summary - Vitals & Intake/Output Vital Signs: Vital Signs Temperature 97.9 F 03/28/17 07:25 Pulse Rate 60 03/28/17 07:25 Respiratory Rate 20 03/28/17 07:25 Blood Pressure 173/94 03/28/17 07:25 O2 Sat by Pulse Oximetry 97 03/28/17 07:25 Oxygen-Last Documented O2 Percentage 2 Liters = 28% Intake & Output: Intake & Output 03/25/17 03/26/17 03/27/17 03/28/17 11:59 11:59 11:59 11:59 Intake Total 782 Balance 782 Weight 153.496 kg - Lab Result Diagrams: 03/28/17 05:00 03/27/17 19:59 Lab Results-Last 24 Hrs: Accuchecks Date 03/28/17 Time 07:30 Accucheck Value: 135 Lab Results-Last 24 Hours 03/27/17 03/28/17 03/28/17 Range/Units 23:08 02:38 05:00 WBC (4.0-10.5) K/mm3 RBC (4.1-5.6) M/mm3 Hgb (12.5-18.0) gm/dl Hct (42-50) % MCV (78-100) fl MCH (26-32) pg MCHC (32-36) g/dl RDW (11.5-14.0) % Plt Count (150-450) K/mm3 MPV (6-9.5) fl Segmented Neutrophils (36.-66.) % Band Neutrophils (0.0-2.0) % Lymphocytes (Manual) (24-44) % Monocytes (Manual) (0.0-12.0) % Differential Comment Platelet Estimate (NORMAL) Hemoglobin A1c (4.5-6.2) Troponin I < 0.017 < 0.017 < 0.017 (0.000-0.056) ng/ml Triglycerides (30-200) mg/dL Cholesterol (100-200) mg/dL LDL Cholesterol (5-99) mg/dL HDL Cholesterol (35-60) mg/dL Heart Disease Risk Ratio 03/28/17 03/28/17 03/28/17 Range/Units 05:00 05:00 05:00 WBC 3.2 L (4.0-10.5) K/mm3 RBC 4.95 (4.1-5.6) M/mm3 Hgb 14.5 (12.5-18.0) gm/dl Hct 44.1 (42-50) % MCV 89.1 (78-100) fl MCH 29.3 (26-32) pg MCHC 32.9 (32-36) g/dl RDW 14.2 H (11.5-14.0) % Plt Count 207 (150-450) K/mm3 MPV 9.7 H (6-9.5) fl Segmented Neutrophils 80 H (36.-66.) % Band Neutrophils 2 (0.0-2.0) % Lymphocytes (Manual) 12 L (24-44) % Monocytes (Manual) 6 (0.0-12.0) % Differential Comment NORMAL Platelet Estimate NORMAL (NORMAL) Hemoglobin A1c 5.1 (4.5-6.2) Troponin I (0.000-0.056) ng/ml Triglycerides 51 (30-200) mg/dL Cholesterol 125 (100-200) mg/dL LDL Cholesterol 83 (5-99) mg/dL HDL Cholesterol 33 L (35-60) mg/dL Heart Disease Risk Ratio 3.8 03/28/17 Range/Units 08:06 WBC (4.0-10.5) K/mm3 RBC (4.1-5.6) M/mm3 Hgb (12.5-18.0) gm/dl Hct (42-50) % MCV (78-100) fl MCH (26-32) pg MCHC (32-36) g/dl RDW (11.5-14.0) % Plt Count (150-450) K/mm3 MPV (6-9.5) fl Segmented Neutrophils (36.-66.) % Band Neutrophils (0.0-2.0) % Lymphocytes (Manual) (24-44) % Monocytes (Manual) (0.0-12.0) % Differential Comment Platelet Estimate (NORMAL) Hemoglobin A1c (4.5-6.2) Troponin I < 0.017 (0.000-0.056) ng/ml Triglycerides (30-200) mg/dL Cholesterol (100-200) mg/dL LDL Cholesterol (5-99) mg/dL HDL Cholesterol (35-60) mg/dL Heart Disease Risk Ratio Micro Results-Entire Visit: Accuchecks Date 03/28/17 Time 07:30 Accucheck Value: 135 - Procedures and Test Procedures and Tests throughout Hospitalization: Therapy Orders & Screens 03/28/17 02:05 Oxygen NASAL CANNULA 2 lpm Comment: KEEP SPO2 >92% PER R.T .PROTOCOL Diagnosis: Allergic reaction, flu-like illness 03/28/17 04:02 EKG ROUTINE Comment: Diagnosis: Chest pain rule out ACS 03/29/17 05:00 EKG DAILY Comment: Diagnosis: Chest pain rule out ACS 03/30/17 05:00 EKG DAILY Comment: Diagnosis: Chest pain rule out ACS 03/31/17 05:00 EKG DAILY Comment: Diagnosis: Chest pain rule out ACS - Discharge Disposition: Home, Self-Care Condition: Good Prescriptions: New Ciprofloxacin [Cipro 500 MG] 500 mg PO BID #14 tablet Methylprednisolone [Medrol Dose Pack] 4 mg PO UD #1 pack Continue Telmisartan 40 mg PO DAILY Aspirin 81 gm Chew [Baby Aspirin 81 mg Chew] 81 mg PO DAILY #0 tab.chew Naproxen [Naprosyn] 500 mg PO BID PRN PRN PRN Reason: Pain Glucosam/Chond/Collagen/Hyalur [Glucosamine Chondroitin Cap] 1 each PO DAILY Discontinued Sulfamethoxazole/Trimethoprim [Bactrim Ds Tablet] 1 tab PO BID Follow up with: CODY HERNANDEZ [Primary Care Provider] -
[2017-03-28] MEDS ORDERED: Micardis 80 MG Tablet PO SCH (10:00)
[2017-03-28] MEDS ORDERED: TELMISARTAN 40 MG PO SCH (10:00)
[2017-03-28] MEDS ORDERED: ROCEPHIN 1 Gm-D5w 50 ml Bag** 1 G/50 ML IVPB IV SCH (10:00)
[2017-03-28] MEDS ORDERED: Pepcid 20 MG PO SCH (10:00)
[2017-03-28] MEDS ORDERED: ENOXAPARIN SODIUM SQ SCH (10:00)
[2017-03-28] MEDS ORDERED: BABY ASPIRIN 81 MG CHEW PO SCH (10:00)
[2017-03-28] MEDS ORDERED: Ecotrin 325 MG PO SCH (10:00)
[2017-03-29] MEDS ORDERED: ECOTRIN 81 MG PO SCH (10:00)
== END 2017-03-28 10:10 | disposition home or self-care (01) ==
LOC: ED 19:32 → MED SURG 22:38
PROVIDERS: ADMIT Family Medicine; ATTEND Family Medicine
DX: T78.40XA Allergy, unspecified, initial encounter (principal); M79.672 Pain in left foot; I10 Essential (primary) hypertension; J45.909 Unspecified asthma, uncomplicated; M06.9 Rheumatoid arthritis, unspecified
CPT/HCPCS: 36000; 36415; 73630; 80053; 80061; 81000; 82962; 83036; 83605; 83721; 84484; 85025; 85652; 87040; 87086; 87631; 93005; 93268; 94760; 96360; 96365; 96374; 96375; 96376; 99285; G0378; J0696; J1200; J1650; J1885; J2405; J2920; A9270-GY

== ENCOUNTER 2018-04-09 20:09 | Emergency (ER) | payer BC ==
[2018-04-09] MEDS ORDERED: Zofran 4 MG/2 ML VIAL IV ONE (20:53)
[2018-04-09] MEDS ORDERED: Hydromorphone 1 mg/ml Ampule IV ONE (20:53)
[2018-04-09] MEDS ORDERED: Sodium Chloride 0.9% 1000 ML 1,000 ML IV SCH (21:00)
[2018-04-09] MEDS ORDERED: Zofran 4 MG/2 ML VIAL ONE (21:29)
[2018-04-09] MEDS ORDERED: Hydromorphone 1 mg/ml Ampule ONE (21:29)
[2018-04-09] MEDS ORDERED: Sodium Chloride 0.9% 1000 ML 1,000 ML ONE (21:29)
[2018-04-09 21:39] VITALS: PULSE 60
[2018-04-09 22:13] LABS: AMYLASE 64 U/L (30-110); ANION GAP 15.6 MEQ/L (5-15); BLOOD UREA NITROGEN 13 mg/dL (9-20); CHLORIDE 100 mmol/L (98-107); Calcium 9.1 mg/dL (8.4-10.2); Carbon Dioxide 29 mmol/L (22-30); Creatinine 1 0.91 mg/dL (0.66-1.25); Glucose 91 mg/dL (74-106); Potassium 3.7 mmol/L (3.5-5.1); SODIUM 140 mmol/L (137-145)
[2018-04-09 22:26] LABS: BASOPHIL % 0.5 % (0.0-0.4); Basophil (Absolute #) 0.04 (0-0.4); Eosinophil % 1.9 % (0.00-5.0); Eosinophil (Absolute #) 0.16 (0-0.5); Granulocytes % 67.9 % (36.0-66.0); Hematocrit 47.3 % (42-50); Hemoglobin 15.9 gm/dl (12.5-18.0); Lymphocyte (Absolute #) 1.87 (1.0-4.6); Lymphocytes % 21.9 % (24.0-44.0); Mean Cell Volume 87.1 fl (78-100); Mean Corpuscular Hemoglobin 29.3 pg (26-32); Mean Corpuscular Hgb Concent. 33.6 g/dl (32-36); Mean Platelet Volume 9.7 fl (6-9.5); Monocyte (Absolute #) 0.67 (0.0-1.3); Monocytes % 7.8 % (0.0-12.0); Platelet Count 319 K/mm3 (150-450); Red Blood Count 5.43 M/mm3 (4.1-5.6); Red Cell Distribution Width 14.5 % (11.5-14.0); White Blood Count 8.5 K/mm3 (4.0-10.5)
[2018-04-09] MEDS ORDERED: TORAdol 30 mg Injection IV ONE (23:31)
--- NOTE | 2018-04-09 23:34 | ERPHSYRPT ---
- History of Present Illness Time Seen by Provider: 04/09/18 20:30 Source: patient Exam Limitations: clinical condition Patient Subjective Stated Complaint: Woke up yesterday with pain in mid lower back that radiates down both legs to long-term down thighs Triage Nursing Assessment: Pt stated that he woke up yesterday with pain in mid lower back that radiates down both legs to long-term down thighs, day before he had been doing a lot of bending over, rates pain 9/10, BP 146/67, hurts worse when he twists, walked slowly to room, no issues with strength, doesn't appear to be in any distress Physician History: PATIENT WITH A HISTORY OF SPINAL CERVICAL FUSION FOR DEGENERATIVE ARTHRITIS, AND HYPERTENSION, COMPLAINS OF INCREASING MID TO LOWER BACK PAIN FOR MONTHS, NOW HAS PAIN FROM LOWER BACK RADIATES DOWN BOTH LEGS TO HIS KNEES. DENIES HISTORY, TRAUMA, HEAVY LIFTING, LOSS OF BOWEL OR BLADDER FUNCTION, FEVER, URINARY SYMPTOMS, NUMBNESS OR TINGLING IN LOWER EXTREMITIES. Timing/Duration: week(s) Method of Injury: other (DENIES TRAUMA OR INJURY) Quality: sharp Back Pain Location: T-spine, lumbar spine Back Pain Radiation: upper legs Severity of Pain-Max: severe Severity of Pain-Current: moderate Modifying Factors: Improves With: movement Associated Symptoms: lower back pain, muscle spasms Previous symptoms: same symptoms as today Allergies/Adverse Reactions: sulfamethoxazole [From Bactrim] Allergy (Verified 03/28/17 09:18) trimethoprim [From Bactrim] Allergy (Verified 03/28/17 09:18) Antihistamines - Alkylamine Adverse Reaction (Verified 03/27/17 20:51) Tightness of Throat aspartame Adverse Reaction (Verified 03/27/17 20:51) Swelling of Tongue and Lips codeine Adverse Reaction (Verified 04/09/18 20:34) Home Medications: Telmisartan 40 mg PO DAILY 11/02/15 [History] Furosemide 40 mg PO BID 04/09/18 [History] Potassium Chloride 10 Meq Tab* [Klor Con 10 MEQ] 10 meq PO BID 04/09/18 [ History] Hx Tetanus, Diphtheria Vaccination/Date Given: Yes Hx Influenza Vaccination/Date Given: No Hx Pneumococcal Vaccination/Date Given: No - Review of Systems Constitutional: No Fever, No Chills Eyes: No Symptoms Ears, Nose, & Throat: No Symptoms Respiratory: No Symptoms, No Cough, No Dyspnea Cardiac: No Symptoms, No Chest Pain, No Edema, No Syncope Abdominal/Gastrointestinal: No Symptoms, No Abdominal Pain, No Nausea, No Vomiting, No Diarrhea Genitourinary Symptoms: No Dysuria Musculoskeletal: Back Pain, No Neck Pain Skin: No Rash Neurological: No Dizziness, No Focal Weakness, No Sensory Changes Psychological: No Symptoms Endocrine: No Symptoms All Other Systems: Reviewed and Negative - Past Medical History Pertinent Past Medical History: Yes Neurological History: Migraines ENT History: No Pertinent History Cardiac History: Arrhythmia Respiratory History: Asthma Endocrine Medical History: Hypoglycemia Musculoskeletal History: Osteoarthritis GI Medical History: Hernia History: No Pertinent History Psycho-Social History: No Pertinent History Male Reproductive Disorders: No Pertinent History Other Medical History: neck surgery, slow heart rate - Past Surgical History Past Surgical History: Yes Neuro Surgical History: No Pertinent History Cardiac: No Pertinent History Respiratory: No Pertinent History Gastrointestinal: No Pertinent History Genitourinary: No Pertinent History Musculoskeletal: No Pertinent History Male Surgical History: No Pertinent History Other Surgical History: Patient had T&A as a child 1970. Patient states he had a fractured tail bone, but could not remember when. Patient had left lower leg surgery to remove an infected splinter from leg in 2005. Patient also states he had a hernia as a child but does not remember what was done about. - Social History Smoking Status: Light tobacco smoker How long have you smoked: occational Exposure to second hand smoke: No Drug Use: none Patient Lives Alone: No - Nursing Vital Signs Nursing Vital Signs: Initial Vital Signs Temperature 97.9 F 04/09/18 20:16 Pulse Rate 62 04/09/18 20:16 Blood Pressure 146/67 04/09/18 20:16 O2 Sat by Pulse Oximetry 96 04/09/18 20:16 Pain Scale Pain Intensity [Posterior 9 Medial Back] Pain Intensity 5 - Physical Exam General Appearance: no apparent distress, alert Eye Exam: PERRL/EOMI, eyes nml inspection Neck Exam: normal inspection, non-tender, supple, full range of motion, No meningismus, No midline tenderness Respiratory Exam: normal breath sounds, lungs clear, No respiratory distress Cardiovascular Exam: regular rate/rhythm, normal heart sounds Gastrointestinal Exam: soft, normal bowel sounds (OBESE NONTENDER), No tenderness, No mass Back Exam: normal inspection, normal range of motion, other (BILAT CVA TENDERNESS) Extremity Exam: normal inspection, normal range of motion, No calf tenderness, No pedal edema Peripheral Pulses: carotid (R): 2+, carotid (L): 2+, femoral (R): 2+, femoral (L ): 2+, dorsalis-pedis (R): 2+, dorsalis-pedis (L): 2+ Neurologic Exam: alert, oriented x 3, cooperative, physical sciences professor II-XII nml as tested, normal mood/affect, nml station & gait, sensation nml, No motor deficits Skin Exam: normal color, warm, dry, No rash SpO2 Interpretation: normal SpO2: 95 Oxygen Delivery: Room Air - CT Exams Abdomen/Pelvis CT Interpretation: Tele-radiologist Report (CHRONIC DIVERTICULOSIS WITHOUT CT EVIDENCE OF DIVERTICULITIS, NO ABDOMINAL AORTIC ANEURYSM) Thoracic Spine CT Interpretation: Tele-radiologist Report (NO EVIDENCE OF FRACTURE OR SUBLUXATION, PREVIOUSLOWER CERVICAL SPINE FUSION, WITH METALLIC HARDWARE IN PLACE, THORACIC SPONDYLOSIS AND DEGENERATIVE CHANGES T7-T8 SMALL POSTERIOR DISC PROTUSION) Lumbar Spine CT Interpretation: Tele-radiologist Report (NO ACUTE FRACTURE DEMONSTRATED, 9MM OF L5 RETROLISTHESIS, MULTILEVEL SPONDYLOSIS AND LOWER LUMBAR DEGENERATIVE CHANGES) Ordered Tests: Active Orders 24 hr Category Date Time Status Clean Catch Urine Specimen STAT Care 04/09/18 20:53 Active IV Insertion STAT Care 04/09/18 20:53 Active ABDOMEN AND PELVIS W/0 CONTRAS [CT] Stat Exams 04/09/18 20:57 Taken LUMBAR SPINE W/O [CT] Stat Exams 04/09/18 21:03 Taken THORACIC SPINE W/O CONTRAST [CT] Stat Exams 04/09/18 21:03 Taken AMYLASE Stat Lab 04/09/18 21:30 Completed BMP Stat Lab 04/09/18 21:30 Completed CBC W DIFF Stat Lab 04/09/18 21:30 Results UA W/RFX UR CULTURE Stat Lab 04/09/18 21:30 Completed Medication Summary Generic Name Dose Route Start Last Admin Trade Name Freq PRN Reason Stop Dose Admin Sodium Chloride 1,000 mls @ 50 mls/hr 04/09/18 21:00 04/09/18 21:34 Sodium Chloride 0.9% 1000 Ml IV 05/09/18 20:59 50 mls/hr .Q20H ALEXANDRA Administration Discontinued Medications Generic Name Dose Route Start Last Admin Trade Name Clemencia PRN Reason Stop Dose Admin Hydromorphone HCl 1 mg 04/09/18 20:53 04/09/18 21:34 Hydromorphone 1 Mg/Ml Ampule IV 04/09/18 20:54 1 mg STAT ONE Administration Hydromorphone HCl Confirm 04/09/18 21:29 Hydromorphone 1 Mg/Ml Ampule Administered 04/09/18 21:30 Dose 1 mg .ROUTE .STK-MED ONE Ketorolac Tromethamine 30 mg 04/09/18 23:31 04/09/18 23:39 Toradol 30 Mg Injection IV 04/09/18 23:32 30 mg STAT ONE Administration Ketorolac Tromethamine Confirm 04/09/18 23:36 Toradol 30 Mg Injection Administered 04/09/18 23:37 Dose 30 mg .ROUTE .STK-MED ONE Ondansetron HCl 4 mg 04/09/18 20:53 04/09/18 21:34 Zofran 4 Mg/2 Ml Vial IV 04/09/18 20:54 4 mg STAT ONE Administration Ondansetron HCl Confirm 04/09/18 21:29 Zofran 4 Mg/2 Ml Vial Administered 04/09/18 21:30 Dose 4 mg .ROUTE .STK-MED ONE Lab/Rad Data: Laboratory Result Diagrams 04/09/18 21:30 04/09/18 21:30 Laboratory Results 04/09/18 04/09/18 04/09/18 Range/Units 21:30 21:30 21:30 WBC 8.5 (4.0-10.5) K/mm3 RBC 5.43 (4.1-5.6) M/mm3 Hgb 15.9 (12.5-18.0) gm/dl Hct 47.3 (42-50) % MCV 87.1 (78-100) fl MCH 29.3 (26-32) pg MCHC 33.6 (32-36) g/dl RDW 14.5 H (11.5-14.0) % Plt Count 319 (150-450) K/mm3 MPV 9.7 H (6-9.5) fl Gran % 67.9 H (36.0-66.0) % Eos # (Auto) 0.16 (0-0.5) Absolute Lymphs (auto) 1.87 (1.0-4.6) Absolute Monos (auto) 0.67 (0.0-1.3) Lymphocytes % 21.9 L (24.0-44.0) % Monocytes % 7.8 (0.0-12.0) % Eosinophils % 1.9 (0.00-5.0) % Basophils % 0.5 (0.0-0.4) % Absolute Granulocytes 5.80 (1.4-6.9) Basophils # 0.04 (0-0.4) Sodium 140 (137-145) mmol/L Potassium 3.7 (3.5-5.1) mmol/L Chloride 100 (98-107) mmol/L Carbon Dioxide 29 (22-30) mmol/L Anion Gap 15.6 H (5-15) MEQ/L BUN 13 (9-20) mg/dL Creatinine 0.91 (0.66-1.25) mg/dL Estimated GFR > 60.0 ML/MIN Glucose 91 (74-106) mg/dL Calcium 9.1 (8.4-10.2) mg/dL Amylase 64 (30-110) U/L Ur Collection Type VOID Urine Color YELLOW (YELLOW) Urine Appearance CLEAR (CLEAR) Urine pH 6.0 (5-6) Ur Specific [place] 1.010 (1.005-1.025) Urine Protein NEGATIVE (Negative) Urine Ketones NEGATIVE (NEGATIVE) Urine Blood NEGATIVE (0-5) Aashish/ul Urine Nitrite NEGATIVE (NEGATIVE) Urine Bilirubin NEGATIVE (NEGATIVE) Urine Urobilinogen NORMAL (0-1) mg/dL Ur Leukocyte Esterase NEGATIVE (NEGATIVE) Urine Culture Reflexed NO (NO) Urine Glucose NEGATIVE (NEGATIVE) mg/dL - Progress Progress: improved, pain not gone completely Progress Note: 04/09/18 23:57 IV NORMAL SALINE 50ML/HR, ZOFRAN 4MG, DILAUDID 1MG, TORADOL 30MG IV Counseled pt/family regarding: lab results, diagnosis, need for follow-up, rad results - Departure Time of Disposition: 00:15 Departure Disposition: Home Clinical Impression: DEGENERATIVE DISC DISEASE LUMBAR SPINE Condition: Stable Critical Care Time: No Referrals: CODY HERNANDEZ [Primary Care Provider] - Additional Instructions: CONSULT YOUR PRIMARY CARE PROVIDER FOR REVIEW EMERGENCY ROOM CT SCANS OF LUMBAR AND THORACIC SPINE, PAIN MANAGEMENT AND REFERRAL TO PHYSICAL THERAPY. TORADOL 10MG EVERY 6 HOURS FOR PAIN AND NORFLEX 100MG TWICE DAILY FOR MUSCLE SPASM. Prescriptions: Ketorolac Tromethamine [Toradol] 10 mg PO Q6HPRN PRN #20 tablet PRN Reason: Pain Orphenadrine Citrate 100 mg [Norflex 100 MG Tablet] 100 mg PO BID #14 tab
[2018-04-09] MEDS ORDERED: TORAdol 30 mg Injection ONE (23:36)
[2018-04-09 23:52] LABS: Appearance CLEAR (CLEAR); Bilirubin NEGATIVE (NEGATIVE); Blood NEGATIVE Ery/ul (0-5); Glucose NEGATIVE (NEGATIVE); Ketones NEGATIVE (NEGATIVE); Leukocyte Esterase NEGATIVE (NEGATIVE); Nitrite NEGATIVE (NEGATIVE); Protein,Urine Dip NEGATIVE (Negative); Urobilinogen NORMAL mg/dL (0-1)
[2018-04-10 00:40] VITALS: BP 141/83; O2SAT 94
[2018-04-10 05:01] LABS: Slide Review 1 YES
--- NOTE | 2018-04-10 09:01 | XRAY ---
Indication: Low back and bilateral leg pain. Multiple contiguous axial images obtained through the abdomen and pelvis without contrast as ordered. Comparison: None. Lung bases demonstrates minimal left base atelectasis/scarring. No infiltrate or effusion. Heart is not enlarged. Small hiatal hernia. Noncontrasted stomach and bowel loops appear nonobstructed. Normal appendix. Scattered descending and sigmoid diverticulosis without diverticulitis. No free fluid/air. Diffuse fatty liver. Remaining liver, gallbladder, pancreas, spleen, adrenal glands, kidneys, ureters, bladder, and aorta appear unremarkable for noncontrast exam. Osseous structures intact with broad-based L5-S1 disc bulge, endplate spurring, disc space loss, and vacuum disc phenomena producing bilateral foraminal narrowing Impression: 1. Colonic diverticulosis without diverticulitis. 2. Fatty liver and small hiatal hernia. 3. L5-S1 degenerative disc disease better evaluated with outpatient MRI. 4. Remaining CT abdomen/pelvis without contrast exam is negative. Comment: Preliminary interpretation was made by [facility]. No critical discrepancy. CT DI 28.13
--- NOTE | 2018-04-10 09:06 | XRAY ---
Indication: Low back and bilateral leg pain. Multiple contiguous axial images obtained through the thoracic spine. Sagittal and coronal reformatted images obtained. Comparison: None. Axial images demonstrates broad-based T7-T8 and T12-L1 disc osteophyte complex with mild spinal canal narrowing. Multilevel tiny Schmorl nodes. Remaining levels negative for acute fracture, suspicious bony lesions, large disc herniation or spinal canal stenosis. Incompletely visualized C7-T1 fusion surgery with anterior fixation hardware and intervertebral spacer. Sagittal and coronal reformatted images demonstrates normal alignment with vertebral body heights and disc spaces maintained. Visualized cardiopulmonary structures unremarkable. CT abdomen/pelvis reported separately. Impression: 1. T7-T8 and T12-L1 degenerative disc disease better evaluated with outpatient MRI. 2. Remaining CT thoracic spine negative. 3. Incompletely visualized C7-T1 fusion surgery. Comment: Preliminary interpretation was made by [facility]. No critical discrepancy. CT DI 133.72
--- NOTE | 2018-04-10 09:08 | XRAY ---
Indication: Low back and bilateral leg pain. Multiple contiguous axial images obtained through the lumbar spine. Sagittal and coronal reformatted images obtained. Comparison: None. CT thoracic spine and CT abdomen/pelvis reported separately. Axial images demonstrates broad-based L5-S1 disc bulge, endplate spurring, and vacuum disc phenomena producing bilateral foraminal narrowing. Lesser broad-based T12-L1 disc osteophyte complex produces spinal canal narrowing. Facets are symmetric. Small multilevel Schmorl nodes. No acute fracture, suspicious bony lesions, or spinal canal stenosis. Sagittal and coronal reformatted images demonstrates normal lumbar alignment. There is L5-S1 disc space loss. Remaining vertebral body heights and disc spaces maintained. No acute compression fracture or subluxation. Impression: 1. T12-L1 and L5-S1 degenerative disc disease better evaluated with outpatient MRI. 2. Remaining CT lumbar spine is negative. Comment: Preliminary interpretation was made by [facility]. No critical discrepancy. CT DI 124.80
== END 2018-04-10 00:39 | disposition home or self-care (01) ==
LOC: ED 20:09
DX: M51.36 Other intervertebral disc degeneration, lumbar region (principal); M54.5 Low back pain; M54.6 Pain in thoracic spine; M79.605 Pain in left leg; M79.604 Pain in right leg; M62.830 Muscle spasm of back; Z79.899 Other long term (current) drug therapy
CPT/HCPCS: 36000; 36415; 72128; 72131; 74176; 80048; 81002; 82150; 85025; 96374; 96375; 99284; J1170; J1885; J2405

== ENCOUNTER 2018-11-22 13:10 | Day surgery (SDC) | payer OTHER ==
[2018-11-22] MEDS ORDERED: Depo-Medrol 40 MG/ML IM ONE (13:11)
[2018-11-22] MEDS ORDERED: Marcaine 0.5% SDV 10 ML IJ ONE (13:11)
[2018-11-22] MEDS ORDERED: Xylocaine 1% Vial 30 ML PF IJ ONE (13:11)
--- NOTE | 2018-11-22 16:39 | XRAY ---
Indication: Left greater trochanter bursa injection. Intraoperative fluoroscopy was provided for 15 seconds. Single digital spot image submitted for interpretation demonstrates needle tip just lateral to the left greater trochanter. Small amount of contrast injected for needle tip placement. Correlate with intraoperative findings/report.
--- NOTE | 2018-11-22 16:47 | XRAY ---
15 seconds of fluoroscopy was used in surgery for a left greater trochanteric bursa injection.
== END 2018-11-22 15:56 | disposition home or self-care (01) ==
LOC: SDC-PAIN 13:10
PROVIDERS: ATTEND Psychiatry & Neurology Pain Medicine
DX: M70.62 Trochanteric bursitis, left hip (principal); Z79.899 Other long term (current) drug therapy; I10 Essential (primary) hypertension; M19.90 Unspecified osteoarthritis, unspecified site; E66.9 Obesity, unspecified
CPT/HCPCS: 20610; 73501; 77002; J1030; J2001; Q9966

== ENCOUNTER 2019-02-21 12:03 | Day surgery (SDC) | payer OTHER ==
[2019-02-21] MEDS ORDERED: Marcaine 0.5% SDV 10 ML IJ ONE (12:04)
[2019-02-21] MEDS ORDERED: Depo-Medrol 40 MG/ML IM ONE (12:04)
[2019-02-21] MEDS ORDERED: Xylocaine 1% Vial 30 ML PF IJ ONE (12:04)
--- NOTE | 2019-02-21 16:30 | XRAY ---
Indication: Bilateral SI joint injection. Intraoperative fluoroscopy was provided for 39 seconds. 4 digital spot images submitted for interpretation demonstrates posterior needle tip projecting over the inferior left and right SI joints. Correlate with intraoperative findings/report.
--- NOTE | 2019-02-21 16:34 | XRAY ---
39 seconds fluoroscopy time in surgery for bilateral SI joint injections.
== END 2019-02-21 15:50 | disposition home or self-care (01) ==
LOC: SDC-PAIN 12:03
PROVIDERS: ATTEND Psychiatry & Neurology Pain Medicine
DX: M46.1 Sacroiliitis, not elsewhere classified (principal); I10 Essential (primary) hypertension; Z79.899 Other long term (current) drug therapy
CPT/HCPCS: 72202; 77002; G0260; 27096; J1030; J2001

== ENCOUNTER 2019-04-04 11:36 | Day surgery (SDC) | payer OTHER ==
[2019-04-04] MEDS ORDERED: Marcaine 0.5% SDV 10 ML IJ ONE (11:37)
[2019-04-04] MEDS ORDERED: Xylocaine 1% Vial 30 ML PF IJ ONE (11:37)
[2019-04-04] MEDS ORDERED: Depo-Medrol 40 MG/ML IM ONE (11:37)
--- NOTE | 2019-04-05 02:34 | XRAY ---
Indication: Left knee injection. Intraoperative fluoroscopy was provided for 6 seconds. A single digital spot film demonstrates the needle tip to be projected over the left femoral intercondylar notch. A small amount of contrast has been injected for needle tip placement. Correlate with intraoperative findings/report.
--- NOTE | 2019-04-05 12:03 | XRAY ---
6 seconds fluoroscopy time in surgery for left intra-articular knee injection.
== END 2019-04-04 13:22 | disposition home or self-care (01) ==
LOC: SDC-PAIN 11:36
PROVIDERS: ATTEND Psychiatry & Neurology Pain Medicine
DX: M17.12 Unilateral primary osteoarthritis, left knee (principal); I10 Essential (primary) hypertension; Z79.899 Other long term (current) drug therapy
CPT/HCPCS: 20610; 73560; 77002; J1030; J2001; Q9966

== ENCOUNTER 2019-07-04 14:26 | Day surgery (SDC) | payer OTHER ==
[2019-07-04] MEDS ORDERED: Xylocaine 1% Vial 30 ML PF IJ ONE (14:27)
[2019-07-04] MEDS ORDERED: Depo-Medrol 40 MG/ML IM ONE (14:27)
[2019-07-04] MEDS ORDERED: Marcaine 0.5% SDV 10 ML IJ ONE (14:27)
--- NOTE | 2019-07-04 16:59 | XRAY ---
Indication: Bilateral SI joint injection. Intraoperative fluoroscopy was provided for 18 seconds. 4 digital spot images submitted for interpretation demonstrates posterior needle tip projecting over the inferior left and right SI joints. Correlate with intraoperative findings/report.
--- NOTE | 2019-07-04 17:04 | XRAY ---
18 seconds fluoroscopy time in surgery for bilateral SI joint injections.
== END 2019-07-04 16:00 | disposition home or self-care (01) ==
LOC: SDC-PAIN 14:26
PROVIDERS: ATTEND Psychiatry & Neurology Pain Medicine
DX: M46.1 Sacroiliitis, not elsewhere classified (principal); I10 Essential (primary) hypertension; Z79.899 Other long term (current) drug therapy
CPT/HCPCS: 72202; 77002; G0260; 27096; J1030; J2001

== ENCOUNTER 2019-10-03 12:23 | Day surgery (SDC) | payer OTHER ==
[2019-10-03] MEDS ORDERED: Depo-Medrol 40 MG/ML IM ONE (12:24)
[2019-10-03] MEDS ORDERED: Xylocaine 1% Vial 30 ML PF IJ ONE (12:24)
[2019-10-03] MEDS ORDERED: Marcaine 0.5% SDV 10 ML IM ONE (12:24)
--- NOTE | 2019-10-03 14:32 | XRAY ---
Indication: Right hip greater trochanter injection. Intraoperative fluoroscopy was provided for 13 seconds. Single digital spot image submitted for interpretation demonstrate needle tip just lateral to the right greater trochanter. Small amount of contrast injected for annual tube placement. Correlate with intraoperative findings/report.
--- NOTE | 2019-10-03 14:32 | XRAY ---
Indication: Left hip greater trochanter injection. Intraoperative fluoroscopy was provided for 7 seconds. Single digital spot image submitted for interpretation demonstrate needle tip just lateral to the left greater trochanter. Small amount of contrast injected for annual tube placement. Correlate with intraoperative findings/report.
--- NOTE | 2019-10-03 14:52 | XRAY ---
13 seconds fluoroscopy time in surgery for right greater trochanteric injection.
--- NOTE | 2019-10-03 15:02 | XRAY ---
7 seconds fluoroscopy time in surgery for left greater trochanteric injection.
== END 2019-10-03 14:20 | disposition home or self-care (01) ==
LOC: SDC-PAIN 12:23
PROVIDERS: ATTEND Psychiatry & Neurology Pain Medicine
DX: M70.62 Trochanteric bursitis, left hip (principal); M70.61 Trochanteric bursitis, right hip; I10 Essential (primary) hypertension; Z79.899 Other long term (current) drug therapy
CPT/HCPCS: 20610; 73501; 77002; J1030; J2001; Q9966

== ENCOUNTER 2020-01-12 10:17 | Emergency (ER) | payer OTHER ==
[2020-01-12] MEDS ORDERED: solu-MEDROL 125 MG IM ONE (10:33)
[2020-01-12] MEDS ORDERED: Catapres 0.1 MG PO ONE (10:33)
--- NOTE | 2020-01-12 10:38 | ERPHSYRPT ---
- History of Present Illness Time Seen by Provider: 01/12/20 10:25 Source: patient Exam Limitations: no limitations Patient Subjective Stated Complaint: pt to ER with complaints of cough, burning sensation in throat since yesteray. pt states productive cough. pt states it started after he was outside yesterday. Triage Nursing Assessment: ambulatory. A&Ox4. pt appears to be in no distress. pt skin pwd. Physician History: 54 yo presented with sore throat /congestion in sinuses/chest with mild dry to wet cough since yesterday after he was out side. no SOB, CP /Palpitations.no fever or chills Timing/Duration: yesterday, gradual onset, worse Cough Quality/Degree: moderate, dry cough Possible Cause: no prior episodes Associated Symptoms: cough, facial pain, nasal congestion, nasal drainage, sore throat, No shortness of breath Allergies/Adverse Reactions: sulfamethoxazole [From Bactrim] Allergy (Verified 01/12/20 10:32) trimethoprim [From Bactrim] Allergy (Verified 01/12/20 10:32) Antihistamines - Alkylamine Adverse Reaction (Verified 01/12/20 10:32) Tightness of Throat aspartame Adverse Reaction (Verified 01/12/20 10:32) Swelling of Tongue and Lips codeine Adverse Reaction (Verified 01/12/20 10:32) Home Medications: Telmisartan 40 mg PO DAILY 11/02/15 [History] Furosemide 40 mg PO BID 04/09/18 [History] Potassium Chloride 10 Meq Tab* [Klor Con 10 MEQ] 10 meq PO BID 04/09/18 [History] Hx Tetanus, Diphtheria Vaccination/Date Given: Yes Hx Influenza Vaccination/Date Given: No Hx Pneumococcal Vaccination/Date Given: No Immunizations Up to Date: Yes Travel Risk - International Travel Have you traveled outside of the country in past 3 weeks: No - Coronavirus Screening Are you exhibiting any of the following symptoms?: Yes Symptoms: Cough: New Onset Close contact with a COVID-19 positive Pt in past 14-21 Days: No - Review of Systems Constitutional: No Symptoms Eyes: No Symptoms Ears, Nose, & Throat: Nose Congestion, Nose Discharge, Sinus Drainage, Throat Swelling Respiratory: Cough Cardiac: No Symptoms Abdominal/Gastrointestinal: No Symptoms Genitourinary Symptoms: No Symptoms Musculoskeletal: No Symptoms Skin: No Symptoms Neurological: No Symptoms Psychological: No Symptoms Endocrine: No Symptoms Hematologic/Lymphatic: No Symptoms Immunological/Allergic: No Symptoms - Past Medical History Pertinent Past Medical History: Yes Neurological History: Migraines ENT History: No Pertinent History Cardiac History: Arrhythmia Respiratory History: Asthma Endocrine Medical History: Hypoglycemia Musculoskeletal History: Osteoarthritis GI Medical History: Hernia History: No Pertinent History Psycho-Social History: No Pertinent History Male Reproductive Disorders: No Pertinent History Other Medical History: neck surgery, slow heart rate - Past Surgical History Past Surgical History: Yes Neuro Surgical History: No Pertinent History Cardiac: No Pertinent History Respiratory: No Pertinent History Gastrointestinal: No Pertinent History Genitourinary: No Pertinent History Musculoskeletal: No Pertinent History Male Surgical History: No Pertinent History Other Surgical History: Patient had T&A as a child 1970. Patient states he had a fractured tail bone, but could not remember when. Patient had left lower leg surgery to remove an infected splinter from leg in 2005. Patient also states he had a hernia as a child but does not remember what was done about. - Social History Smoking Status: Never smoker How long have you smoked: occational Exposure to second hand smoke: No Drug Use: none Patient Lives Alone: No - Nursing Vital Signs Nursing Vital Signs: Initial Vital Signs Temperature 97.8 F 01/12/20 10:24 Pulse Rate 56 L 01/12/20 10:24 Respiratory Rate 17 01/12/20 10:24 Blood Pressure 207/103 01/12/20 10:24 O2 Sat by Pulse Oximetry 96 01/12/20 10:24 Pain Scale Pain Intensity 6 - Physical Exam General Appearance: no apparent distress Eye Exam: PERRL/EOMI, eyes nml inspection Ears, Nose, Throat Exam: pharyngeal erythema, other (diffuse erythema with few exodates bilateral . ) Neck Exam: normal inspection, non-tender, supple, full range of motion Respiratory Exam: normal breath sounds, lungs clear Cardiovascular Exam: regular rate/rhythm, normal heart sounds Back Exam: normal inspection, normal range of motion Extremity Exam: normal inspection, normal range of motion Neurologic Exam: alert, oriented x 3, cooperative, bracelet form coverer II-XII nml as tested, normal mood/affect, nml cerebellar function, nml station & gait, sensation nml Skin Exam: normal color SpO2 Interpretation: normal SpO2: 97 O2 Delivery: Room Air Ordered Tests: Active Orders 24 hr Category Date Time Status CHEST 2 VIEWS (PA AND LAT) Stat Exams 01/12/20 10:35 Completed Medication Summary Discontinued Medications Generic Name Dose Route Start Last Admin Trade Name Clemencia PRN Reason Stop Dose Admin Clonidine 0.3 mg 01/12/20 10:33 01/12/20 10:47 Catapres 0.1 Mg PO 01/12/20 10:34 0.3 mg STAT ONE Administration Clonidine Confirm 01/12/20 10:43 Catapres 0.1 Mg Administered 01/12/20 10:44 Dose 0.3 mg .ROUTE .STK-MED ONE Methylprednisolone Sodium Succinate 125 mg 01/12/20 10:33 01/12/20 10:47 Solu-Medrol 125 Mg IM 01/12/20 10:34 125 mg STAT ONE Administration Methylprednisolone Sodium Succinate Confirm 01/12/20 10:43 Solu-Medrol 125 Mg Administered 01/12/20 10:44 Dose 125 mg .ROUTE .STK-MED ONE Lab/Rad Data: Laboratory Results 01/12/20 Range/Units Unknown Group A Strep Antibody NOT DETECTED (NEGATIVE) - Progress Progress: improved, re-examined Air Movement: good Progress Note: 01/12/20 has uri /pharyngitis. given a stertoid shot and started on abx . Blood Culture(s) Obtained: No Antibiotics given: Yes Counseled pt/family regarding: lab results, diagnosis, need for follow-up, rad results - Departure Departure Disposition: Home Clinical Impression: Uncontrolled hypertension Acute pharyngitis Qualifiers: Pharyngitis/tonsillitis etiology: other specified organisms Qualified Code(s): J02.8 - Acute pharyngitis due to other specified organisms Condition: Stable Critical Care Time: No Referrals: CODY HERNANDEZ [Primary Care Provider] - Follow Up with PCP/3 days Instructions: Cough, Adult (DC) Additional Instructions: take your blood pressure medications regularly. follow up with pcp for re evaluation. return to ER for any worsening./ Prescriptions: Prednisone 20 mg [Deltasone 20 mg] 60 mg PO DAILY 5 Days #15 tablet Azithromycin 250 mg [Zithromax 250 MG TABLET] 250 mg PO ZPACK #6 tablet
[2020-01-12] MEDS ORDERED: Catapres 0.1 MG ONE (10:43)
[2020-01-12] MEDS ORDERED: solu-MEDROL 125 MG ONE (10:43)
[2020-01-12 12:39] VITALS: BP 139/84; PULSE 51
--- NOTE | 2020-01-12 17:45 | XRAY ---
Indication: Cough. Comparison: December 29, 2015. PA/lateral chest remains clear. Heart is not enlarged. Bony thorax intact again with mild degenerative changes and lower cervical fusion surgery. Impression: Continued nonacute chest with chronic bony findings.
[2020-01-12 18:43] VITALS: O2SAT 97
== END 2020-01-12 12:39 | disposition home or self-care (01) ==
LOC: ED 10:17
DX: J02.9 Acute pharyngitis, unspecified (principal); I10 Essential (primary) hypertension
CPT/HCPCS: 71046; 87651; 96372; 99284; J2930; A9270-GY

== ENCOUNTER 2020-01-20 19:10 | Emergency (ER) | payer OTHER ==
--- NOTE | 2020-01-20 19:14 | ERPHSYRPT ---
- History of Present Illness Time Seen by Provider: 01/20/20 19:13 Source: patient, family Exam Limitations: no limitations Physician History: This is an obese 54-year-old white male has a history of hypertension and presents with elevated blood pressure. Patient states he was not feeling well today. He describes it as feeling weak and off. He denies chest pain he denies shortness of breath he denies abdominal pain. He said no nausea vomiting or diarrhea. Patient took his blood pressure at home and his systolic blood pressure was in the 180 range. Patient did take his losartan medication today. However, yesterday he did not take his medication as prescribed. Patient's blood sugar at home was within normal limits. Patient arrives to the emergency department with a blood pressure of 178/111. Patient denies headache or visual changes. Timing/Duration: today Severity: moderate Associated Symptoms: weakness, No nausea, No vomiting, No abdominal pain, No shortness of breath, No chest pain, No fever, No syncope Allergies/Adverse Reactions: sulfamethoxazole [From Bactrim] Allergy (Verified 01/20/20 19:17) trimethoprim [From Bactrim] Allergy (Verified 01/20/20 19:17) Antihistamines - Alkylamine Adverse Reaction (Verified 01/20/20 19:17) Tightness of Throat aspartame Adverse Reaction (Verified 01/20/20 19:17) Swelling of Tongue and Lips codeine Adverse Reaction (Verified 01/20/20 19:17) Home Medications: Telmisartan 40 mg PO DAILY 11/02/15 [History] Furosemide 40 mg PO BID 04/09/18 [History] Potassium Chloride 10 Meq Tab* [Klor Con 10 MEQ] 10 meq PO BID 04/09/18 [History] Oxycodone HCl/Acetaminophen [Oxycodone-Acetaminophen 10-325] 1 tab PO BID PRN 01/20/20 [History] Hx Tetanus, Diphtheria Vaccination/Date Given: Yes Hx Influenza Vaccination/Date Given: No Hx Pneumococcal Vaccination/Date Given: No - Review of Systems Constitutional: Weakness (Mild) Eyes: No Symptoms Ears, Nose, & Throat: No Symptoms Respiratory: No Symptoms Cardiac: No Symptoms Abdominal/Gastrointestinal: No Symptoms Genitourinary Symptoms: No Symptoms Musculoskeletal: No Symptoms Skin: No Symptoms Neurological: No Symptoms, No Dizziness, No Headache Psychological: No Symptoms Endocrine: No Symptoms Hematologic/Lymphatic: No Symptoms Immunological/Allergic: No Symptoms All Other Systems: Reviewed and Negative - Past Medical History Pertinent Past Medical History: Yes Neurological History: Migraines ENT History: No Pertinent History Cardiac History: Arrhythmia Respiratory History: Asthma Endocrine Medical History: Hypoglycemia Musculoskeletal History: Osteoarthritis GI Medical History: Hernia History: No Pertinent History Psycho-Social History: No Pertinent History Male Reproductive Disorders: No Pertinent History Other Medical History: neck surgery, slow heart rate - Past Surgical History Past Surgical History: Yes Neuro Surgical History: No Pertinent History Cardiac: No Pertinent History Respiratory: No Pertinent History Gastrointestinal: No Pertinent History Genitourinary: No Pertinent History Musculoskeletal: No Pertinent History Male Surgical History: No Pertinent History Other Surgical History: Patient had T&A as a child 1970. Patient states he had a fractured tail bone, but could not remember when. Patient had left lower leg surgery to remove an infected splinter from leg in 2005. Patient also states he had a hernia as a child but does not remember what was done about. - Social History Smoking Status: Never smoker How long have you smoked: occational Exposure to second hand smoke: No Drug Use: none Patient Lives Alone: No - Nursing Vital Signs Nursing Vital Signs: Initial Vital Signs Temperature 98.2 F 01/20/20 19:10 Pulse Rate 67 01/20/20 19:10 Respiratory Rate 16 01/20/20 19:10 Blood Pressure 178/100 01/20/20 19:10 O2 Sat by Pulse Oximetry 96 01/20/20 19:10 - Physical Exam General Appearance: no apparent distress, alert, anxiety Eye Exam: PERRL/EOMI, eyes nml inspection Ears, Nose, Throat Exam: normal ENT inspection, moist mucous membranes Neck Exam: normal inspection, non-tender, supple, full range of motion Respiratory Exam: normal breath sounds, lungs clear, airway intact, No chest tenderness, No respiratory distress Cardiovascular Exam: regular rate/rhythm, normal heart sounds, normal peripheral pulses Gastrointestinal/Abdomen Exam: soft, normal bowel sounds, No tenderness Rectal Exam: not done Back Exam: normal inspection, normal range of motion, No CVA tenderness, No vertebral tenderness Extremity Exam: normal inspection, normal range of motion, pelvis stable Neurologic Exam: alert, oriented x 3, cooperative, tdp displays analyst II-XII nml as tested, normal mood/affect, nml cerebellar function, nml station & gait Skin Exam: normal color, warm, dry Lymphatic Exam: No adenopathy SpO2 Interpretation: normal O2 Delivery: Room Air - Course Nursing assessment & vital signs reviewed: Yes EKG Interpreted by Me: RATE (59), Sinus Rhythm, NORMAL AXIS, NORMAL INTERVALS, NORMAL QRS, Other (There is no evidence of any acute ischemic changes on the EKG. There is no comparison EKG available.) Ordered Tests: Active Orders 24 hr Category Date Time Status EKG-ER Only STAT Care 01/20/20 19:45 Active IV Insertion STAT Care 01/20/20 19:45 Active CBC W DIFF Stat Lab 01/20/20 19:53 Completed CMP Stat Lab 01/20/20 19:53 Completed Medication Summary Discontinued Medications Generic Name Dose Route Start Last Admin Trade Name Fosterq PRN Reason Stop Dose Admin Enalaprilat 1.25 mg 01/20/20 19:52 01/20/20 20:11 Vasotec I.V. 2.5 Mg IV 01/20/20 19:53 1.25 mg STAT ONE Administration Enalaprilat Confirm 01/20/20 19:54 Vasotec I.V. 2.5 Mg Administered 01/20/20 19:55 Dose 2.5 mg IV .STK-MED ONE Hydrogen Peroxide Confirm 01/20/20 19:39 Peroxide 3% Administered 01/20/20 19:40 Dose 237 ml .ROUTE .STK-MED ONE Lab/Rad Data: Laboratory Result Diagrams 01/20/20 19:53 01/20/20 19:53 Laboratory Results 01/20/20 01/20/20 Range/Units 19:53 19:53 WBC 8.9 (4.0-10.5) K/mm3 RBC 5.30 (4.1-5.6) M/mm3 Hgb 15.4 (12.5-18.0) gm/dl Hct 46.4 (42-50) % MCV 87.5 (78-100) fl MCH 29.1 (26-32) pg MCHC 33.2 (32-36) g/dl RDW 13.9 (11.5-14.0) % Plt Count 262 (150-450) K/mm3 MPV 9.7 (7.5-11.0) fl Gran % 76.4 H (36.0-66.0) % Eos # (Auto) 0.10 (0-0.5) Absolute Lymphs (auto) 1.39 (1.0-4.6) Absolute Monos (auto) 0.56 (0.0-1.3) Lymphocytes % 15.6 L (24.0-44.0) % Monocytes % 6.3 (0.0-12.0) % Eosinophils % 1.1 (0.00-5.0) % Basophils % 0.6 (0.0-0.4) % Absolute Granulocytes 6.83 (1.4-6.9) Basophils # 0.05 (0-0.4) Sodium 138 (137-145) mmol/L Potassium 3.4 L (3.5-5.1) mmol/L Chloride 104 (98-107) mmol/L Carbon Dioxide 27 (22-30) mmol/L Anion Gap 10.6 (5-15) MEQ/L BUN 14 (9-20) mg/dL Creatinine 0.85 (0.66-1.25) mg/dL Estimated GFR > 60.0 ML/MIN Glucose 126 H (74-106) mg/dL Calcium 8.9 (8.4-10.2) mg/dL Total Bilirubin 0.60 (0.2-1.3) mg/dL AST 21 (17-59) U/L ALT 20 (0-50) U/L Alkaline Phosphatase 74 (38-126) U/L Serum Total Protein 7.5 (6.3-8.2) g/dL Albumin 4.1 (3.5-5.0) g/dL - Progress Progress: improved, re-examined Progress Note: 01/20/20 21:53 Patient states he is feeling better as the blood pressure has improved. His discharge blood pressure is 151/86 Counseled pt/family regarding: lab results, diagnosis, need for follow-up - Departure Departure Disposition: Home Clinical Impression: Hypertensive urgency Condition: Stable Critical Care Time: Yes Critical Care Time(excluding separately billable procedures): Critical 30-74 mins Referrals: CODY HERNANDEZ [Primary Care Provider] - Additional Instructions: Take your medication as prescribed. Keep a daily log twice a day of your blood pressure. Follow up with your primary care physician for further management.
[2020-01-20] MEDS ORDERED: PEROXIDE 3% ONE (19:39)
[2020-01-20] MEDS ORDERED: VASOTEC I.V. 2.5 MG IV ONE ×2 (19:52→19:54)
[2020-01-20 19:57] LABS: Absolute Neutrophil Ct (ANC) 6.83 (1.4-6.9); BASOPHIL % 0.6 % (0.0-0.4); Basophil (Absolute #) 0.05 (0-0.4); Eosinophil % 1.1 % (0.00-5.0); Hematocrit 46.4 % (42-50); Hemoglobin 15.4 gm/dl (12.5-18.0); Lymphocyte (Absolute #) 1.39 (1.0-4.6); Lymphocytes % 15.6 % (24.0-44.0); Mean Cell Volume 87.5 fl (78-100); Mean Corpuscular Hemoglobin 29.1 pg (26-32); Mean Corpuscular Hgb Concent. 33.2 g/dl (32-36); Mean Platelet Volume 9.7 fl (7.5-11.0); Monocyte (Absolute #) 0.56 (0.0-1.3); Monocytes % 6.3 % (0.0-12.0); Neutrophil % 76.4 % (36.0-66.0); Platelet Count 262 K/mm3 (150-450); Red Cell Distribution Width 13.9 % (11.5-14.0); White Blood Count 8.9 K/mm3 (4.0-10.5)
[2020-01-20 20:08] LABS: ALBUMIN 4.1 g/dL (3.5-5.0); ALKALINE PHOSPHATASE 74 U/L (38-126); ANION GAP 10.6 MEQ/L (5-15); BLOOD UREA NITROGEN 14 mg/dL (9-20); CHLORIDE 104 mmol/L (98-107); Calcium 8.9 mg/dL (8.4-10.2); Carbon Dioxide 27 mmol/L (22-30); Creatinine 1 0.85 mg/dL (0.66-1.25); Glucose 126 mg/dL (74-106); Potassium 3.4 mmol/L (3.5-5.1); SGOT/AST 21 U/L (17-59); SGPT/ALT 20 U/L (0-50); SODIUM 138 mmol/L (137-145); Total Protein 7.5 g/dL (6.3-8.2)
[2020-01-20] MEDS ORDERED: HYDROCODONE-ACETAMIN 2.5-108/5 ML SOLUTION PO STA (22:27)
[2020-01-20] MEDS ORDERED: ROCEPHIN 1 Gm-D5w 50 ml Bag** 1 G/50 ML IVPB IV STA (22:28)
[2020-01-20] MEDS ORDERED: ROCEPHIN 1 Gm-D5w 50 ml Bag** 1 G/50 ML IVPB IV ONE (22:50)
[2020-01-20] MEDS ORDERED: HYDROCODONE-ACETAMIN 2.5-108/5 ML SOLUTION ONE (22:50)
[2020-01-21 00:18] VITALS: BP 137/85; PULSE 56; O2SAT 95
== END 2020-01-21 00:30 | disposition home or self-care (01) ==
LOC: ED 19:10
DX: I16.0 Hypertensive urgency (principal); R07.89 Other chest pain; Z79.899 Other long term (current) drug therapy; I10 Essential (primary) hypertension
CPT/HCPCS: 36000; 36415; 80053; 84484; 85025; 85379; 93005; 96374; 96375; 99284; 99291; J0696; A9270-GY

== ENCOUNTER 2020-01-23 15:35 | Day surgery (SDC) | payer OTHER ==
[2020-01-23] MEDS ORDERED: Marcaine 0.5% SDV 10 ML IJ ONE (15:36)
[2020-01-23] MEDS ORDERED: Xylocaine 1% Vial 30 ML PF IJ ONE (15:36)
[2020-01-23] MEDS ORDERED: Depo-Medrol 40 MG/ML IM ONE (15:36)
[2020-01-23] MEDS ORDERED: Decadron 4 MG INJ IV ONE (15:36)
--- NOTE | 2020-01-23 18:47 | XRAY ---
Indication: Bilateral SI joint injection and left piriformis injection. Intraoperative fluoroscopy was provided for 35 seconds. 6 digital spot images submitted for interpretation demonstrates posterior needle tip projecting over the inferior left and right SI joint. A third needle tip projects over the expected left piriformis muscle with small amount of contrast injected for needle tip placement. Correlate with intraoperative findings/report.
--- NOTE | 2020-01-23 18:47 | XRAY ---
35 seconds of fluoroscopy was used in surgery for a bilateral SI joint and left piriformis injection.
== END 2020-01-23 17:08 | disposition home or self-care (01) ==
LOC: SDC-PAIN 15:35
PROVIDERS: ATTEND Psychiatry & Neurology Pain Medicine
DX: M46.1 Sacroiliitis, not elsewhere classified (principal); M79.18 Myalgia, other site; I10 Essential (primary) hypertension; Z79.899 Other long term (current) drug therapy
CPT/HCPCS: 20552; 72202; 77002; G0260; 27096; J1030; J1100; J2001; Q9966

== ENCOUNTER 2020-04-02 14:09 | Day surgery (SDC) | payer OTHER ==
[2020-04-02] MEDS ORDERED: BUPIVACAINE 0.5% VIAL IJ ONE (14:10)
[2020-04-02] MEDS ORDERED: Depo-Medrol 40 MG/ML IM ONE (14:10)
[2020-04-02] MEDS ORDERED: Xylocaine 1% Vial 30 ML PF IJ ONE (14:10)
--- NOTE | 2020-04-02 16:27 | XRAY ---
Indication: Right hip injection. Intraoperative fluoroscopy was provided for 8 seconds. Single digital spot image obtained prone demonstrates needle tip projecting just lateral to the right greater trochanter. Small amount of contrast injected for needle tip placement. Correlate with intraoperative findings/report.
--- NOTE | 2020-04-02 16:29 | XRAY ---
Indication: Left hip injection. Intraoperative fluoroscopy was provided for 13 seconds. Single digital spot image obtained prone demonstrates needle tip projecting just lateral to the left greater trochanter. Small amount of contrast injected for needle tip placement. Correlate with intraoperative findings/report.
--- NOTE | 2020-04-02 16:36 | XRAY ---
8 seconds fluoroscopy time in surgery for right hip injection of the greater trochanter.
--- NOTE | 2020-04-02 16:46 | XRAY ---
13 seconds fluoroscopy time in surgery for injection of the greater trochanter bursa of the left hip.
== END 2020-04-02 15:56 | disposition home or self-care (01) ==
LOC: SDC-PAIN 14:09
PROVIDERS: ATTEND Psychiatry & Neurology Pain Medicine
DX: M70.72 Other bursitis of hip, left hip (principal); I10 Essential (primary) hypertension; Z79.899 Other long term (current) drug therapy
CPT/HCPCS: 20610; 73501; 77002; J1030; J2001; Q9966

== ENCOUNTER 2020-11-12 10:27 | Day surgery (SDC) | payer OTHER, MEDICARE ==
[2020-11-12] MEDS ORDERED: Depo-Medrol 40 MG/ML IM ONE (10:28)
[2020-11-12] MEDS ORDERED: LIDOCAINE HCL 2% 100 MG/5 ML IJ ONE (10:28)
[2020-11-12] MEDS ORDERED: Versed 2 MG/2 ML Injection ONE (11:39)
[2020-11-12] MEDS ORDERED: Ketamine HCl 50 MG/ML ONE (11:41)
[2020-11-12] MEDS ORDERED: DIPRIVAN 200 MG/20 ML IV ONE (11:42)
--- NOTE | 2020-11-12 14:02 | XRAY ---
Indication: Right L3-S1 MBB. Intraoperative fluoroscopy was provided for 23 seconds. Single digital spot image submitted for interpretation demonstrates posterior needle tips projecting over the expected right L3-S1 nerve roots. Correlate with intraoperative findings/report.
[2020-11-12] MEDS ORDERED: Lactated Ringers 1,000 ML IV ONE (16:32)
--- NOTE | 2020-11-13 08:47 | XRAY ---
23 seconds fluoroscopy time in surgery for right L3-S1 MBB.
== END 2020-11-12 12:07 | disposition home or self-care (01) ==
LOC: SDC-PAIN 10:27
PROVIDERS: ATTEND Psychiatry & Neurology Pain Medicine
DX: M47.816 Spondylosis without myelopathy or radiculopathy, lumbar region (principal); I10 Essential (primary) hypertension; Z79.899 Other long term (current) drug therapy; E66.9 Obesity, unspecified
CPT/HCPCS: 64493; 64494; 64495; 72020; 77002; 82947; J1030; J2250; J2704

== ENCOUNTER 2020-12-17 10:30 | Day surgery (SDC) | payer MEDICARE, OTHER ==
[2020-12-17] MEDS ORDERED: BUPIVACAINE 0.5% VIAL IJ ONE (10:31)
[2020-12-17] MEDS ORDERED: Depo-Medrol 40 MG/ML IM ONE (10:31)
[2020-12-17] MEDS ORDERED: DIPRIVAN 200 MG/20 ML IV ONE (11:51)
--- NOTE | 2020-12-17 13:03 | XRAY ---
Indication: Right L3-S1 MBB. Intraoperative fluoroscopy provided for 22 seconds. Single digital spot image submitted for interpretation demonstrates posterior needle tips projecting over the expected right L3-S1 nerve roots. Correlate with intraoperative findings/report.
--- NOTE | 2020-12-17 13:36 | XRAY ---
22 seconds fluoroscopy time in surgery for right L3-S1 MBB.
[2020-12-17] MEDS ORDERED: Lactated Ringers 1,000 ML IV ONE (16:21)
== END 2020-12-17 12:27 | disposition home or self-care (01) ==
LOC: SDC-PAIN 10:30
PROVIDERS: ATTEND Psychiatry & Neurology Pain Medicine
DX: M47.816 Spondylosis without myelopathy or radiculopathy, lumbar region (principal); I10 Essential (primary) hypertension; M19.90 Unspecified osteoarthritis, unspecified site; E66.9 Obesity, unspecified; Z79.899 Other long term (current) drug therapy
CPT/HCPCS: 64493; 64494; 64495; 72020; 77002; J1030; J2704

== ENCOUNTER 2021-01-12 05:58 | Day surgery (SDC) | payer MEDICARE, OTHER ==
[2021-01-12] MEDS ORDERED: Lactated Ringers 1,000 ML IV SCH (06:30)
[2021-01-12] MEDS ORDERED: DIPRIVAN 200 MG/20 ML IV ONE ×2 (07:58→08:20)
[2021-01-12] MEDS ORDERED: ROBINUL ONE (08:04)
[2021-01-12 09:02] VITALS: O2SAT 97
[2021-01-12 09:26] VITALS: BP 144/88; PULSE 70
--- NOTE | 2021-01-13 09:38 | OP ---
SURGERY DATE: 01/12/2021 SURGERY TIME: 757 PREOPERATIVE DIAGNOSIS: 1. SCREENING EXAM. POSTOPERATIVE DIAGNOSIS: 1. POLYPS IN THE HEPATIC FLEXURE AND DISTAL SIGMOID COLON. 2. SIGMOID DIVERTICULOSIS. PROCEDURE: 1. Colonoscopy with hot biopsy forceps and polypectomy snare. SURGEON: Dr. Driver. ANESTHESIA: MAC. Medications given by the Anesthesia Department. BRIEF HISTORY: The patient is a 55 y/o WM patient presenting now for screening colonoscopy. He was appraised of the risks of the procedure including the risk of perforation, phlebitis, untoward reaction to medication, bleeding, and missed lesions. The patient verbalized his understanding and desired to have the procedure performed. DESCRIPTION OF PROCEDURE: The patient was given the medications by the Anesthesia Department. He had continuous pulse oximetry, ECG monitoring, intermittent BP monitoring, and end tidal CO2 monitoring during the examination. He was placed in the left lateral decubitus position. A digital rectal examination was performed and revealed normal anal sphincter tone, no masses, and a normal prostate. The flexible Olympus pediatric colonoscope was used to intubate the rectum. A view of the colon was developed sequentially to the ascending colon. At the ileocecal valve, we were not able to get into the cecum itself. Upon insertion and withdrawal, was noted a polyp in the hepatic flexure which was destroyed and removed using hot biopsy forceps and multiple passes of the forceps. A second polyp was encountered at approximately 25-30 cm depth of insertion in the low sigmoid colon. This was destroyed using hot polypectomy snare and pathologic evaluation to follow with retrieval of the polyp fragments. Upon insertion and withdrawal was otherwise noted moderate sigmoid diverticulosis. No other mucosal lesions were encountered. The scope was removed from the patient who tolerated the procedure well and was sent back to OP recovery in good condition. The prep was noted to be fair to good.
== END 2021-01-12 09:25 | disposition home or self-care (01) ==
LOC: SDC 05:58
PROVIDERS: ATTEND Family Medicine
DX: Z12.11 Encounter for screening for malignant neoplasm of colon (principal); K57.30 Diverticulosis of large intestine without perforation or abscess without bleeding; D12.3 Benign neoplasm of transverse colon; D12.5 Benign neoplasm of sigmoid colon
CPT/HCPCS: J2704

== ENCOUNTER 2021-01-21 14:33 | Day surgery (SDC) | payer MEDICARE, OTHER ==
[2021-01-21] MEDS ORDERED: Depo-Medrol 40 MG/ML IM ONE (14:34)
[2021-01-21] MEDS ORDERED: Xylocaine 1% Vial 30 ML PF IJ ONE (14:34)
[2021-01-21] MEDS ORDERED: BUPIVACAINE 0.5% VIAL IJ ONE (14:34)
--- NOTE | 2021-01-21 20:04 | XRAY ---
Indication: Bilateral greater trochanter bursa injections. Intraoperative fluoroscopy provided for 41 seconds. 2 digital spot image submitted for interpretation demonstrates posterior needle needle tip projecting just lateral to the left and right greater trochanter. Small amount of contrast injected for both needle tip placement. Correlate with intraoperative findings/report.
--- NOTE | 2021-01-22 08:47 | XRAY ---
41 seconds fluoroscopy time in surgery for bilateral injections of the greater trochanter bursa.
== END 2021-01-21 17:08 | disposition home or self-care (01) ==
LOC: SDC-PAIN 14:33
PROVIDERS: ATTEND Psychiatry & Neurology Pain Medicine
DX: M70.62 Trochanteric bursitis, left hip (principal); M70.61 Trochanteric bursitis, right hip; I10 Essential (primary) hypertension; E66.9 Obesity, unspecified; Z79.899 Other long term (current) drug therapy
CPT/HCPCS: 20610; 73521; 77002; J1030; J2001; Q9966

== ENCOUNTER 2021-08-12 13:37 | Day surgery (SDC) | payer MEDICARE ==
[2021-08-12] MEDS ORDERED: Depo-Medrol 40 MG/ML IM ONE (13:38)
[2021-08-12] MEDS ORDERED: BUPIVACAINE 0.5% VIAL IJ ONE (13:38)
[2021-08-12] MEDS ORDERED: Xylocaine 1% Vial 30 ML PF IJ ONE (13:38)
--- NOTE | 2021-08-12 22:32 | XRAY ---
Indication: Bilateral greater trochanter bursa injections. Intraoperative fluoroscopy provided for 29 seconds. 2 digital spot image submitted for interpretation demonstrates needle tip projecting just lateral to the left and right greater trochanters. Small amount of contrast injected for needle tip placement. Correlate with intraoperative findings/report.
--- NOTE | 2021-08-13 08:52 | XRAY ---
29 seconds of fluoroscopy was used in surgery for a bilateral greater trochanteric bursa injection.
== END 2021-08-12 17:35 | disposition home or self-care (01) ==
LOC: SDC-PAIN 13:37
PROVIDERS: ATTEND Psychiatry & Neurology Pain Medicine
DX: M70.62 Trochanteric bursitis, left hip (principal); M70.61 Trochanteric bursitis, right hip; Z79.899 Other long term (current) drug therapy
CPT/HCPCS: 20610; 73521; 77002; J1030; J2001; Q9966

== ENCOUNTER 2021-12-30 08:36 | Day surgery (SDC) | payer MEDICARE ==
[2021-12-30] MEDS ORDERED: Depo-Medrol 40 MG/ML IM ONE (08:37)
[2021-12-30] MEDS ORDERED: Marcaine Mpf 0.5% Vial 30 Ml IJ ONE (08:37)
[2021-12-30] MEDS ORDERED: XYLOCAINE-MPF 1% 5ML SDV IJ ONE (08:37)
--- NOTE | 2021-12-30 11:38 | XRAY ---
Indication: Bilateral SI joint and bilateral greater trochanter bursa injections. Intraoperative fluoroscopy provided for 46 seconds. 6 digital spot image submitted for interpretation demonstrates posterior needle tip projecting over the inferior left and right SI joint. Additional needle tip lateral to the left and right greater trochanters with small amount of contrast injected for needle tip placement. Correlate with intraoperative findings/report.
--- NOTE | 2021-12-30 12:03 | XRAY ---
46 seconds of fluoroscopy was used in surgery for a bilateral sacroiliac joint and bilateral greater trochanteric bursa injections.
== END 2021-12-30 09:53 | disposition home or self-care (01) ==
LOC: SDC-PAIN 08:36
PROVIDERS: ATTEND Psychiatry & Neurology Pain Medicine
DX: M46.1 Sacroiliitis, not elsewhere classified (principal); M70.62 Trochanteric bursitis, left hip; M70.61 Trochanteric bursitis, right hip; Z79.899 Other long term (current) drug therapy
CPT/HCPCS: 20610; 27096; 73522; 77002; G0260; J1030; Q9966

== ENCOUNTER 2022-04-12 13:13 | Emergency (ER) | payer MEDICARE ==
--- NOTE | 2022-04-12 14:05 | ERPHSYRPT ---
- History of Present Illness Time Seen by Provider: 04/12/22 13:45 Patient Subjective Stated Complaint: Pt c/o of an infection to his legs, [facility] has been given an [facility] but pt feels like it has gotten worse Triage Nursing Assessment: Pt brought to the ER by his , [facility] w[facility], rates pain as 8/10, ramana lower ext with purplish fluid filled areas with greenish looking scabbed areas on the anterior and posterior, pt has been placed on an antibiotic but he can't remember the name of it, pt is extremely edematous without much pitting, Physician History: This is a morbidly obese 57-year-old white male patient of Dr. Driver who also sees Dr. Hinkle for pain control issues and has Percocet at home. Patient also has significant lymphedema and chronic venous stasis ulcer disease. His right lower extremity has some ulcerations present as well. Last week, patient was placed on doxycycline for cellulitis. Patient does not feel that that antibiotic is working. [facility] and they told him to come to the emergency department where we could provide him with an intravenous dose of antibiotics. He has not had a fever. He has not had chills. Patient has a history of hypertension, arrhythmias, asthma and osteoarthritis. Timing/Duration: week(s) (2) Quality: painful Severity: mild Location: extremities (Bilateral lower extremity lymphedema and chronic venous stasis disease with ulcerations in the right lower extremity) Associated Symptoms: other (Ulcerations right lower extremity within the chronic venous stasis disease.) Allergies/Adverse Reactions: sulfamethoxazole [From Bactrim] Allergy (Verified 04/12/22 13:35) trimethoprim [From Bactrim] Allergy (Verified 04/12/22 13:35) Antihistamines - Alkylamine Adverse Reaction (Verified 04/12/22 13:35) Tightness of Throat aspartame Adverse Reaction (Verified 04/12/22 13:35) Swelling of Tongue and Lips codeine Adverse Reaction (Verified 04/12/22 13:35) Home Medications: Telmisartan 80 mg PO DAILY 11/02/15 [History] Oxycodone HCl/Acetaminophen [Oxycodone-Acetaminophen 10-325] 1 tab PO BID PRN 01/20/20 [History] Amlodipine Besylate [Norvasc] 2.5 mg PO DAILY 12/29/20 [History] Baclofen 10 mg [Lioresal 10 mg] 10 mg PO DAILY PRN PRN 12/29/20 [History] Testosterone Cypionate [Testone Cik] 200 mg IM UD 12/29/20 [History] Clonidine HCl 0.1 mg [Clonidine 0.1 mg Tablet] 0.2 mg PO DAILY 04/12/22 [History] Furosemide [Lasix] 20 mg PO DAILY 04/12/22 [History] Hx Tetanus, Diphtheria Vaccination/Date Given: Yes Hx Influenza Vaccination/Date Given: No Hx Pneumococcal Vaccination/Date Given: No Travel Risk - International Travel Have you traveled outside of the country in past 3 weeks: No - Coronavirus Screening Are you exhibiting any of the following symptoms?: No Close contact with a COVID-19 positive Pt in past 14-21 Days: No - Vaccine Status Have you recieved a Covid-19 vaccination: Yes [employer]: [employer] - Vaccination Dates Date of 2cond Vaccination (if applicable): 2020 - Review of Systems Constitutional: No Symptoms Eyes: No Symptoms Ears, Nose, & Throat: No Symptoms Respiratory: No Symptoms Cardiac: No Symptoms Abdominal/Gastrointestinal: No Symptoms Genitourinary Symptoms: No Symptoms Musculoskeletal: No Symptoms Skin: Cellulitis (Mild right lower extremity cellulitis), Other (Chronic venous stasis disease with mild ulcerations present.) Neurological: No Symptoms Psychological: No Symptoms Endocrine: No Symptoms Hematologic/Lymphatic: No Symptoms Immunological/Allergic: No Symptoms All Other Systems: Reviewed and Negative - Past Medical History Pertinent Past Medical History: Yes Neurological History: Migraines ENT History: No Pertinent History Cardiac History: Arrhythmia, Hypertension Respiratory History: Asthma Endocrine Medical History: Hypoglycemia Musculoskeletal History: Osteoarthritis GI Medical History: Gallbladder Disease, Hernia History: No Pertinent History Psycho-Social History: No Pertinent History Male Reproductive Disorders: No Pertinent History Other Medical History: neck surgery, slow heart rate - Past Surgical History Past Surgical History: Yes Neuro Surgical History: No Pertinent History Cardiac: No Pertinent History Respiratory: No Pertinent History Gastrointestinal: No Pertinent History Genitourinary: No Pertinent History Musculoskeletal: No Pertinent History Male Surgical History: No Pertinent History Other Surgical History: Patient had T&A as a child 1970. Patient states he had a fractured tail bone, but could not remember when. Patient had left lower leg surgery to remove an infected splinter from leg in 2005. Patient also states he had a hernia as a child but does not remember what was done about. - Social History Smoking Status: Never smoker How long have you smoked: occational Exposure to second hand smoke: No Drug Use: none Patient Lives Alone: No - Nursing Vital Signs Nursing Vital Signs: Initial Vital Signs Temperature 98.9 F 04/12/22 13:24 Pulse Rate 71 04/12/22 13:24 Blood Pressure 128/59 04/12/22 13:24 O2 Sat by Pulse Oximetry 93 L 04/12/22 13:24 Pain Scale Pain Intensity 8 - Physical Exam General Appearance: no apparent distress, alert, obese Eye Exam: PERRL/EOMI, eyes nml inspection Ears, Nose, Throat Exam: normal ENT inspection, moist mucous membranes Neck Exam: normal inspection, non-tender, supple, full range of motion Respiratory Exam: airway intact, No chest tenderness, No respiratory distress Gastrointestinal/Abdomen Exam: No tenderness Rectal Exam: not done Back Exam: normal inspection, normal range of motion, No CVA tenderness, No vertebral tenderness Extremity Exam: tenderness (In the area of the ulcerations at the level of the right ankle. Patient has significant bilateral lower extremity chronic venous stasis disease. There is mild cellulitis around the ulceration the right ankle area. There is no odor and no significant drainage present.) Neurologic Exam: alert, oriented x 3, cooperative, cupola tapper II-XII nml as tested, normal mood/affect, nml cerebellar function, nml station & gait, sensation nml Skin Exam: other Lymphatic Exam: No adenopathy (See above) SpO2 Interpretation: borderline oxygenation SpO2: 93 - Course Nursing assessment & vital signs reviewed: Yes Ordered Tests: Active Orders 24 hr Category Date Time Status IV Insertion STAT Care 04/12/22 14:17 Active Wound Care STAT Care 04/12/22 14:12 Active CULTURE,WOUND Stat Lab 04/12/22 14:14 Ordered Medication Summary Generic Name Dose Route Start Last Admin Trade Name Freq PRN Reason Stop Dose Admin Levofloxacin/Dextrose 500 mg in 100 mls @ 100 mls/hr 04/12/22 14:16 Levofloxacin 500mg/100ml D5w IV 04/12/22 15:15 STAT STA - Progress Progress: unchanged Progress Note: 04/12/22 14:11 Medical decision making: This patient has 2 more days of his doxycycline prescription. The plan for him is to put an IV in and give him a single dose of Levaquin 500 mg intravenously. He is to continue his doxycycline. He needs to follow-up with his primary care physician for the culture and sensitivity results. That way, the antibiotic use will be specific for the culture that was obtained today. We will also be making an appointment for wound care clinic. Counseled pt/family regarding: diagnosis, need for follow-up - Departure Departure Disposition: Home Clinical Impression: Chronic cutaneous venous stasis ulcer, Cellulitis of right ankle Condition: Stable Critical Care Time: No Referrals: CODY DRIVER [Primary Care Provider] - Follow up/PCP as directed Additional Instructions: Complete your doxycycline antibiotics. In addition, start the Levaquin orally. Keep the areas clean with soap and water daily. Follow-up with your scheduled wound care clinic appointment. Take your pain medication as prescribed. Pain control as an outpatient via your chronic pain specialist. In 48 hours, contact Dr. Driver's office for the culture and sensitivity results of the right leg ulceration. If unable to obtain the results, contact the emergency department.
[2022-04-12] MEDS ORDERED: Levofloxacin 500MG/100ML D5W 500 MG/100 ML BAG IV STA (14:16)
[2022-04-12] MEDS ORDERED: Levofloxacin 500MG/100ML D5W 500 MG/100 ML BAG IV ONE (14:22)
[2022-04-12 15:13] VITALS: BP 148/71; PULSE 88; O2SAT 98
== END 2022-04-12 15:44 | disposition home or self-care (01) ==
LOC: ED 13:13
DX: I83.213 Varicose veins of right lower extremity with both ulcer of ankle and inflammation (principal); L97.319 Non-pressure chronic ulcer of right ankle with unspecified severity; L03.115 Cellulitis of right lower limb; I10 Essential (primary) hypertension; Z79.891 Long term (current) use of opiate analgesic; Z79.899 Other long term (current) drug therapy
CPT/HCPCS: 36000; 87070; 96365; 99284; J1956

== ENCOUNTER 2022-07-08 08:50 | Day surgery (SDC) | payer MEDICARE ==
[2022-07-08] MEDS ORDERED: Depo-Medrol 40 MG/ML IM ONE (08:51)
[2022-07-08] MEDS ORDERED: Sodium Chloride 0.9(Preservative Free) 10 ML IJ ONE (08:51)
[2022-07-08] MEDS ORDERED: LIDOCAINE HCL 1% 50 MG/5 ML VL PF IJ ONE (08:51)
--- NOTE | 2022-07-08 12:02 | XRAY ---
Indication: Lumbar ANJANA. Intraoperative fluoroscopy provided for 23 seconds. 2 digital spot image submitted for interpretation demonstrates posterior needle tip projecting at believe posterior to L1- L2 interspace. Small amount of contrast injected for needle tip placement. Correlate with intraoperative findings/report.
--- NOTE | 2022-07-08 12:40 | XRAY ---
23 seconds of fluoroscopy was used in surgery for a lumbar ANJANA.
== END 2022-07-08 10:55 | disposition home or self-care (01) ==
LOC: SDC-PAIN 08:50
PROVIDERS: ATTEND Psychiatry & Neurology Pain Medicine
DX: M54.16 Radiculopathy, lumbar region (principal); Z79.899 Other long term (current) drug therapy
CPT/HCPCS: 62323; 72100; 77003; J1030; J2001; Q9966

== ENCOUNTER 2022-09-04 13:56 | Emergency (ER) | payer MEDICARE ==
[2022-09-04 14:09] VITALS: O2SAT 97
[2022-09-04] MEDS ORDERED: solu-MEDROL 125 MG, Sterile H2O 10 ml 2 ML IM ONE ×2 (14:22)
[2022-09-04] MEDS ORDERED: Hydromorphone 1 mg/ml Injection IM ONE (14:22)
[2022-09-04] MEDS ORDERED: Sterile H2O 10 ml IJ ONE (14:24)
[2022-09-04] MEDS ORDERED: Hydromorphone 1 mg/ml Injection ONE (14:24)
[2022-09-04] MEDS ORDERED: solu-MEDROL ONE (14:24)
--- NOTE | 2022-09-04 14:31 | ERPHSYRPT ---
- History of Present Illness Time Seen by Provider: 09/04/22 14:15 Source: patient Exam Limitations: no limitations Patient Subjective Stated Complaint: Left sided hip and back pain Triage Nursing Assessment: Patient ambulated back to ED and transferred self to bed. Patient A+O X3. Patient's skin pink, warm and dry. Patient complains of left sided lower back and hip pain constant aching with intermittent sharp pain 10/10 when moving for the past 3 days. Patient denies injury or trauma to area. Physician History: Patient is a 57-year-old white male who has chronic low back pain. He is followed by the pain clinic Dr. Hinkle. He presents with an exacerbation of pain in his left hip. He has at times had radiating pain both sides but this episode is primarily of the left hip. He has had no relief for 3 days even when he is taking his standard Percocets. He did have an episodes of right bursitis in the hip on the other side in the past that was treated with steroids. Patient denies any injury to the left hip. Timing/Duration: day(s) (3) Method of Injury: other (Patient states no known injury) Quality: throbbing Back Pain Location: lumbar spine Back Pain Radiation: buttocks, lower legs (Radiates into the buttocks and proximal thigh) Severity of Pain-Max: severe (Pain is severe unrelenting unrelieved by Percocet) Severity of Pain-Current: severe Modifying Factors: Improves With: movement Associated Symptoms: denies symptoms Previous symptoms: same symptoms as today Allergies/Adverse Reactions: sulfamethoxazole [From Bactrim] Allergy (Verified 09/04/22 14:01) trimethoprim [From Bactrim] Allergy (Verified 09/04/22 14:01) Antihistamines - Alkylamine Adverse Reaction (Verified 09/04/22 14:01) Tightness of Throat aspartame Adverse Reaction (Verified 09/04/22 14:01) Swelling of Tongue and Lips codeine Adverse Reaction (Verified 09/04/22 14:01) Home Medications: Telmisartan 80 mg PO DAILY 11/02/15 [History] Oxycodone HCl/Acetaminophen [Oxycodone-Acetaminophen 10-325] 1 tab PO BID PRN 01/20/20 [History] Amlodipine Besylate [Norvasc] 2.5 mg PO DAILY 12/29/20 [History] Baclofen 10 mg [Lioresal 10 mg] 10 mg PO DAILY PRN PRN 12/29/20 [History] Testosterone Cypionate [Testone Cik] 200 mg IM UD 12/29/20 [History] Clonidine HCl 0.1 mg [Clonidine 0.1 mg Tablet] 0.2 mg PO DAILY 04/12/22 [History] Furosemide [Lasix] 20 mg PO DAILY 04/12/22 [History] Hx Tetanus, Diphtheria Vaccination/Date Given: Yes Hx Influenza Vaccination/Date Given: No Hx Pneumococcal Vaccination/Date Given: No Immunizations Up to Date: Yes Travel Risk - International Travel Have you traveled outside of the country in past 3 weeks: No - Coronavirus Screening Are you exhibiting any of the following symptoms?: No Close contact with a COVID-19 positive Pt in past 14-21 Days: No - Vaccine Status Have you recieved a Covid-19 vaccination: Yes [employer] Work[employer]: Moderna - Vaccination Dates Date of 2cond Vaccination (if applicable): 2020 - Review of Systems Constitutional: No Fever, No Chills Eyes: No Symptoms Ears, Nose, & Throat: No Symptoms Respiratory: No Cough, No Dyspnea Cardiac: No Chest Pain, No Edema, No Syncope Abdominal/Gastrointestinal: No Abdominal Pain, No Nausea, No Vomiting, No Diarrhea Genitourinary Symptoms: No Dysuria Musculoskeletal: Back Pain, No Neck Pain Skin: No Rash Neurological: Gait Changes, Other (Radiculopathy), No Dizziness, No Focal Weakness, No Sensory Changes Psychological: No Symptoms Endocrine: No Symptoms All Other Systems: Reviewed and Negative - Past Medical History Pertinent Past Medical History: Yes Neurological History: No Pertinent History, Peripheral Neuropathy ENT History: No Pertinent History Cardiac History: Angina, Arrhythmia, Hypertension, Peripheral Vascular Disease Respiratory History: Asthma, COPD Endocrine Medical History: Hypoglycemia Musculoskeletal History: Degenerative Disk Disease, Osteoarthritis, Other GI Medical History: Gallbladder Disease, Hernia History: No Pertinent History Psycho-Social History: No Pertinent History Male Reproductive Disorders: No Pertinent History Other Medical History: CERVICAL FUSION ABOUT 10 YEARS AGO. - Past Surgical History Past Surgical History: Yes Neuro Surgical History: No Pertinent History Cardiac: No Pertinent History Respiratory: No Pertinent History Gastrointestinal: No Pertinent History Genitourinary: No Pertinent History Musculoskeletal: No Pertinent History Male Surgical History: No Pertinent History Other Surgical History: Patient had T&A as a child 1970. Patient states he had a fractured tail bone, but could not remember when. Patient had left lower leg surgery to remove an infected splinter from leg in 2005. Patient also states he had a hernia as a child but does not remember what was done about. - Social History Smoking Status: Never smoker How long have you smoked: occational Exposure to second hand smoke: No Drug Use: none Patient Lives Alone: No - Nursing Vital Signs Nursing Vital Signs: Initial Vital Signs Temperature 96.7 F 09/04/22 14:02 Pulse Rate 63 09/04/22 14:02 Respiratory Rate 18 09/04/22 14:02 Blood Pressure 123/63 09/04/22 14:02 O2 Sat by Pulse Oximetry 97 09/04/22 14:02 Pain Scale Pain Intensity 10 - Physical Exam General Appearance: moderate distress, alert Eye Exam: PERRL/EOMI, eyes nml inspection Neck Exam: normal inspection, non-tender, supple, full range of motion, No meningismus, No midline tenderness Respiratory Exam: normal breath sounds, lungs clear, No respiratory distress Cardiovascular Exam: regular rate/rhythm, normal heart sounds Gastrointestinal Exam: soft, No tenderness, No mass Back Exam: vertebral tenderness, decreased range of motion, point tenderness, other (Tenderness into the left hip especially over the greater trochanter) Extremity Exam: normal inspection, normal range of motion, No calf tenderness, No pedal edema Neurologic Exam: alert, oriented x 3, cooperative, operations mgr II-XII nml as tested, normal mood/affect, nml station & gait, sensation nml, No motor deficits Skin Exam: normal color, warm, dry, No rash SpO2 Interpretation: normal SpO2: 97 O2 Delivery: Room Air - Course Nursing assessment & vital signs reviewed: Yes - Radiology Exams Left Hip X-ray Interpretation: Interpreted by me, Negative Ordered Tests: Active Orders 24 hr Category Date Time Status HIP UNI (2V) INCL PEL IF DONE Stat Exams 09/04/22 14:19 Taken Medication Summary Discontinued Medications Generic Name Dose Route Start Last Admin Trade Name Freq PRN Reason Stop Dose Admin Methylprednisolone Sodium 0 mg 09/04/22 14:22 09/04/22 14:28 Succinate 125 mg/ Sterile IM 09/04/22 14:23 125 mg Water 2 ml STAT ONE Administration Hydromorphone HCl 1 mg 09/04/22 14:22 09/04/22 14:28 Hydromorphone 1 Mg/1ml Inj 1 Mg/Ml Syringe IM 09/04/22 14:23 1 mg STAT ONE Administration Hydromorphone HCl Confirm 09/04/22 14:24 Hydromorphone 1 Mg/1ml Inj 1 Mg/Ml Syringe Administered 09/04/22 14:25 Dose 1 mg .ROUTE .STK-MED ONE Methylprednisolone Sodium Succinate Confirm 09/04/22 14:24 Methylprednis Sod Succ 125 Mg/2 Ml Vial Administered 09/04/22 14:25 Dose 125 mg .ROUTE .STK-MED ONE Sterile Water Confirm 09/04/22 14:24 Water For Injection,Sterile 10 Ml Vial Administered 09/04/22 14:25 Dose 10 ml IJ .STK-MED ONE - Progress Progress: improved Medical Desision Making - Social Determinants of Health Limited access to: transportation - Diagnostic Testing Diagnostic Testing: Diagnostic tests were ordered,analyzed, and reviewed by me and used in my medic al decision making for this patient. Radiologic studies (if ordered) were read by me initially then discussed with the radiologist . - Risk of complications Low Risk: Low risk of morbidity from additional dx testing or treatment - Departure Departure Disposition: Home Clinical Impression: Greater trochanteric bursitis of left hip Condition: Stable Critical Care Time: No Referrals: ROHAN,NEELAM [Primary Care Provider] - Follow up/PCP as directed Instructions: Bursitis ED Prescriptions: Prednisone 10 mg [Deltasone 10 mg] 20 mg PO BID 4 Days #16 tablet
[2022-09-04 15:11] VITALS: BP 102/73; PULSE 55
--- NOTE | 2022-09-04 18:58 | XRAY ---
Indication: Left hip pain. No known injury. Comparison: May 08, 2020 AP pelvis and 2 view left hip demonstrates mild lumbosacral junction degenerative changes not previously included in [id number]. No other bony, articular, or soft tissue abnormalities.
== END 2022-09-04 15:21 | disposition home or self-care (01) ==
LOC: ED 13:56
DX: M70.62 Trochanteric bursitis, left hip (principal); I10 Essential (primary) hypertension; Z79.891 Long term (current) use of opiate analgesic; Z79.899 Other long term (current) drug therapy; Z79.52 Long term (current) use of systemic steroids
CPT/HCPCS: 73502; 96372; 99283; J1170; J2930

== ENCOUNTER 2022-09-22 15:07 | Day surgery (SDC) | payer MEDICARE ==
[2022-09-22] MEDS ORDERED: Depo-Medrol 40 MG/ML IM ONE (15:08)
[2022-09-22] MEDS ORDERED: BUPIVACAINE 0.5% VIAL IJ ONE (15:08)
[2022-09-22] MEDS ORDERED: LIDOCAINE HCL 1% 50 MG/5 ML VL PF IJ ONE (15:08)
[2022-09-22] MEDS ORDERED: Decadron 4 MG INJ IV ONE (15:08)
--- NOTE | 2022-09-22 19:12 | XRAY ---
Indication: Left SI joint and left piriformis injection. Intraoperative fluoroscopy provided for 44 seconds. 5 digital spot image submitted for interpretation demonstrates posterior needle tip projecting over the left SI joint. Second needle tip projects over the left piriformis muscle with small amount of contrast injected for needle tip placement. Correlate with intraoperative findings/report.
--- NOTE | 2022-09-23 08:37 | XRAY ---
44 seconds of fluoroscopy was in surgery for a left sacroiliac joint, left piriformis, and left gluteal muscle injections.
== END 2022-09-22 18:00 | disposition home or self-care (01) ==
LOC: SDC-PAIN 15:07
PROVIDERS: ATTEND Psychiatry & Neurology Pain Medicine
DX: M16.12 Unilateral primary osteoarthritis, left hip (principal); M79.18 Myalgia, other site
CPT/HCPCS: 20553; 27096; 73502; 76942; 77002; G0260; J1030; J1100; J2001; Q9966

== ENCOUNTER 2022-12-29 17:19 | Emergency (ER) | payer MEDICARE ==
--- NOTE | 2022-12-29 17:37 | ERPHSYRPT ---
- History of Present Illness Source: patient Exam Limitations: no limitations Timing/Duration: week(s) (1) Severity: mild (Moderate) Associated Symptoms: other (Pain and redness bilateral lower extremity right side worse than left) Hx Tetanus, Diphtheria Vaccination/Date Given: Yes Hx Influenza Vaccination/Date Given: No Hx Pneumococcal Vaccination/Date Given: No - History of Present Illness Time Seen by Provider: 12/29/22 17:37 Physician History: This a 57-year-old morbidly obese white male patient of Dr. Hernandez who has a history of chronic venous stasis disease chronically as well as venous stasis ulcer disease which have improved and cleared up after following up at wound care clinic. Patient sees Dr. Hinkle as his pain specialist and his registration scheduling specialist is Dr. Gayle. Patient states for the last week he has noticed some increasing redness in his bilateral lower extremities but right side worse than the left. Patient states that he took Bactrim DS a few days during the week because he had a few leftover from prior prescription. This did not seem to help him. He is also having some shooting pains in the right lower extremity up to his knee anteriorly. Patient has a history of hypertension, peripheral vascular disease, asthma, COPD, hypoglycemia and degenerative joint disease. He has not noticed a fever at home. He has no chest pain and denies shortness of breath. (LIT TYLER) Allergies/Adverse Reactions: Antihistamines - Alkylamine Adverse Reaction (Verified 12/29/22 17:30) Tightness of Throat aspartame Adverse Reaction (Verified 12/29/22 17:30) Swelling of Tongue and Lips codeine Adverse Reaction (Verified 12/29/22 17:30) Home Medications: Telmisartan 80 mg PO DAILY 11/02/15 [History] Oxycodone HCl/Acetaminophen [Oxycodone-Acetaminophen 10-325] 1 tab PO BID PRN 01/20/20 [History] Amlodipine Besylate [Norvasc] 2.5 mg PO DAILY 12/29/20 [History] Baclofen 10 mg [Lioresal 10 mg] 10 mg PO DAILY PRN PRN 12/29/20 [History] Testosterone Cypionate [Testone Cik] 200 mg IM UD 12/29/20 [History] Spironolactone 25 mg [Aldactone 25 MG] 0.5 tab PO DAILY 12/29/22 [History] Travel Risk - International Travel Have you traveled outside of the country in past 3 weeks: No - Coronavirus Screening Are you exhibiting any of the following symptoms?: No Close contact with a COVID-19 positive Pt in past 14-21 Days: No - Vaccine Status Have you recieved a Covid-19 vaccination: Yes Epic Kaleidoscope Analyst: Moderna - Vaccination Dates Date of 2cond Vaccination (if applicable): 2020 - Review of Systems Constitutional: No Symptoms Eyes: No Symptoms Ears, Nose, & Throat: No Symptoms Respiratory: No Symptoms Cardiac: No Symptoms Abdominal/Gastrointestinal: No Symptoms Genitourinary Symptoms: No Symptoms Musculoskeletal: No Symptoms Skin: No Symptoms Neurological: No Symptoms Psychological: No Symptoms Endocrine: No Symptoms Hematologic/Lymphatic: No Symptoms Immunological/Allergic: No Symptoms All Other Systems: Reviewed and Negative - Past Medical History Pertinent Past Medical History: Yes Neurological History: No Pertinent History, Peripheral Neuropathy ENT History: No Pertinent History Cardiac History: Angina, Arrhythmia, Hypertension, Peripheral Vascular Disease Respiratory History: Asthma, COPD Endocrine Medical History: Hypoglycemia Musculoskeletal History: Degenerative Disk Disease, Osteoarthritis, Other GI Medical History: Gallbladder Disease, Hernia History: No Pertinent History Psycho-Social History: No Pertinent History Male Reproductive Disorders: No Pertinent History Other Medical History: Cervical fusion in late - Past Surgical History Past Surgical History: Yes Neuro Surgical History: No Pertinent History Cardiac: No Pertinent History Respiratory: No Pertinent History Gastrointestinal: No Pertinent History Genitourinary: No Pertinent History Musculoskeletal: No Pertinent History Male Surgical History: No Pertinent History Other Surgical History: Patient had T&A as a child 1970. Patient states he had a fractured tail bone, but could not remember when. Patient had left lower leg surgery to remove an infected splinter from leg in 2005. Patient also states he had a hernia as a child but does not remember what was done about. - Social History Smoking Status: Never smoker How long have you smoked: occational Exposure to second hand smoke: No Drug Use: none Patient Lives Alone: No - Physical Exam General Appearance: no apparent distress, alert, anxiety Eye Exam: PERRL/EOMI, eyes nml inspection Ears, Nose, Throat Exam: normal ENT inspection, moist mucous membranes Neck Exam: normal inspection, non-tender, supple, full range of motion Respiratory Exam: normal breath sounds, lungs clear, airway intact, No chest tenderness, No respiratory distress Cardiovascular Exam: regular rate/rhythm, normal heart sounds, normal peripheral pulses Gastrointestinal/Abdomen Exam: soft, normal bowel sounds, No tenderness Rectal Exam: not done Back Exam: normal inspection, normal range of motion, No CVA tenderness, No vertebral tenderness Extremity Exam: normal range of motion, pelvis stable, other (Patient has bilateral lymphedema with bilateral chronic venous stasis disease and healed ulcerations of both lower extremities. There is some redness and warmth and? Cellulitis right greater than left below the knee.) Neurologic Exam: alert, oriented x 3, cooperative, political anthropologist II-XII nml as tested, normal mood/affect, nml cerebellar function, nml station & gait, sensation nml Skin Exam: other (See abovecellulitis) Lymphatic Exam: No adenopathy SpO2 Interpretation: normal O2 Delivery: Room Air - Nursing Vital Signs Nursing Vital Signs: Initial Vital Signs Pulse Rate 80 12/29/22 17:32 Respiratory Rate 16 12/29/22 17:32 Blood Pressure 136/58 12/29/22 17:32 O2 Sat by Pulse Oximetry 92 L 12/29/22 17:32 Pain Scale Pain Intensity 8 - Course Nursing assessment & vital signs reviewed: Yes Ordered Tests: Active Orders 24 hr Category Date Time Status Optics Technical Officer STAT Care 12/29/22 19:13 Active IV Insertion STAT Care 12/29/22 19:13 Active Pulse Oximetry (ED) STAT Care 12/29/22 19:13 Active BLOOD CULTURE Stat Lab 12/29/22 19:13 Received CBC W DIFF Stat Lab 12/29/22 19:25 Completed CMP Stat Lab 12/29/22 19:25 Completed Lactic Acid Stat Lab 12/29/22 19:35 Completed UA W/RFX UR CULTURE Stat Lab 12/29/22 20:34 Completed Medication Summary Generic Name Dose Route Start Last Admin Trade Name Freq PRN Reason Stop Dose Admin Ceftriaxone Sodium 1,000 mg 12/29/22 22:24 Ceftriaxone Sodium 1000 Mg Inj Vial IM 12/29/22 22:25 STAT ONE Discontinued Medications Generic Name Dose Route Start Last Admin Trade Name Freq PRN Reason Stop Dose Admin Morphine Sulfate 4 mg 12/29/22 19:14 12/29/22 19:31 Morphine Sulfate 4 Mg/Ml Injection IV 06/07/23 19:15 4 mg STAT ONE Administration Morphine Sulfate Confirm 12/29/22 19:28 Morphine Sulfate 4 Mg/Ml Injection Administered 12/29/22 19:29 Dose 4 mg .ROUTE .STK-MED ONE Ondansetron HCl 4 mg 12/29/22 19:13 12/29/22 19:30 Ondansetron Hcl 4 Mg/2 Ml Vial IV 12/29/22 19:14 4 mg STAT STA Administration Ondansetron HCl Confirm 12/29/22 19:28 Ondansetron Hcl 4 Mg/2 Ml Vial Administered 12/29/22 19:29 Dose 4 mg .ROUTE .[facility] ONE Lab/Rad Data: Laboratory Result Diagrams 12/29/22 19:25 12/29/22 19:25 Laboratory Results 12/29/22 12/29/22 12/29/22 Range/Units 20:34 19:35 19:25 WBC (4.0-10.5) x10^3/uL RBC (4.1-5.6) x10^6/uL Hgb (12.5-18.0) g/dL Hct (42-50) % MCV (78-100) fL MCH (26-32) pg MCHC (32-36) g/dL RDW (11.5-14.0) % Plt Count (150-450) x10^3/uL MPV (7.5-11.0) fL Gran % (36.0-66.0) % Immature Gran % (Auto) (0.00-0.4) % Nucleat RBC Rel Count (0.00-0.1) % Eos # (Auto) (0-0.5) x10^3/uL Immature Gran # (Auto) (0.00-0.03) x10^3u/L Absolute Lymphs (auto) (1.0-4.6) x10^3/uL Absolute Monos (auto) (0.0-1.3) x10^3/uL Absolute Nucleated RBC (0.00-0.01) x10^3u/L Lymphocytes % (24.0-44.0) % Monocytes % (0.0-12.0) % Eosinophils % (0.00-5.0) % Basophils % (0.0-0.4) % Absolute Granulocytes (1.4-6.9) x10^3/uL Basophils # (0-0.4) x10^3/uL Sodium 139 (137-145) mmol/L Potassium 4.6 (3.5-5.1) mmol/L Chloride 101 (98-107) mmol/L Carbon Dioxide 30 (22-30) mmol/L Anion Gap 13.6 (5-15) MEQ/L BUN 15 (9-20) mg/dL Creatinine 1.01 (0.66-1.25) mg/dL Estimated GFR > 60.0 ML/MIN Glucose 101 (74-106) mg/dL Lactic Acid 1.0 (0.4-2.0) Calcium 8.3 L (8.4-10.2) mg/dL Total Bilirubin 0.50 (0.2-1.3) mg/dL AST 25 (17-59) U/L ALT 20 (0-50) U/L Alkaline Phosphatase 70 (38-126) U/L Serum Total Protein 7.7 (6.3-8.2) g/dL Albumin 4.0 (3.5-5.0) g/dL Urine Color Yellow (Yellow) Urine Appearance Clear (Clear) Urine pH 5.5 (4.6-8.0) Ur Specific Weston 1.015 (1.005-1.030) Urine Protein Negative (Negative) Urine Glucose (UA) Negative (Negative) mg/dL Urine Ketones Negative (Negative) Urine Blood Negative (Negative) Urine Nitrite Negative (Negative) Urine Bilirubin Negative (Negative) Urine Urobilinogen 0.2 (0.2) mg/dL Ur Leukocyte Esterase Moderate A (Negative) U Hyaline Cast (Auto) NONE SEEN (0-2) /LPF Urine Microscopic RBC 0-2 (0-5) /HPF Urine Microscopic WBC 11-20 A (0-5) /HPF Ur Epithelial Cells None Seen (None Seen) /HPF Urine Bacteria None Seen (None Seen) /HPF Urine Culture Reflexed NO (NO) 12/29/22 Range/Units 19:25 WBC 9.3 (4.0-10.5) x10^3/uL RBC 4.72 (4.1-5.6) x10^6/uL Hgb 13.8 (12.5-18.0) g/dL Hct 43.6 (42-50) % MCV 92.4 (78-100) fL MCH 29.2 (26-32) pg MCHC 31.7 L (32-36) g/dL RDW 13.7 (11.5-14.0) % Plt Count 269 (150-450) x10^3/uL MPV 9.5 (7.5-11.0) fL Gran % 74.8 H (36.0-66.0) % Immature Gran % (Auto) 0.4 (0.00-0.4) % Nucleat RBC Rel Count 0.0 (0.00-0.1) % Eos # (Auto) 0.29 (0-0.5) x10^3/uL Immature Gran # (Auto) 0.04 H (0.00-0.03) x10^3u/L Absolute Lymphs (auto) 1.18 (1.0-4.6) x10^3/uL Absolute Monos (auto) 0.76 (0.0-1.3) x10^3/uL Absolute Nucleated RBC 0.00 (0.00-0.01) x10^3u/L Lymphocytes % 12.7 L (24.0-44.0) % Monocytes % 8.2 (0.0-12.0) % Eosinophils % 3.1 (0.00-5.0) % Basophils % 0.8 (0.0-0.4) % Absolute Granulocytes 6.94 H (1.4-6.9) x10^3/uL Basophils # 0.07 (0-0.4) x10^3/uL Sodium (137-145) mmol/L Potassium (3.5-5.1) mmol/L Chloride (98-107) mmol/L Carbon Dioxide (22-30) mmol/L Anion Gap (5-15) MEQ/L BUN (9-20) mg/dL Creatinine (0.66-1.25) mg/dL Estimated GFR ML/MIN Glucose (74-106) mg/dL Lactic Acid (0.4-2.0) Calcium (8.4-10.2) mg/dL Total Bilirubin (0.2-1.3) mg/dL AST (17-59) U/L ALT (0-50) U/L Alkaline Phosphatase (38-126) U/L Serum Total Protein (6.3-8.2) g/dL Albumin (3.5-5.0) g/dL Urine Color (Yellow) Urine Appearance (Clear) Urine pH (4.6-8.0) Ur Specific Weston (1.005-1.030) Urine Protein (Negative) Urine Glucose (UA) (Negative) mg/dL Urine Ketones (Negative) Urine Blood (Negative) Urine Nitrite (Negative) Urine Bilirubin (Negative) Urine Urobilinogen (0.2) mg/dL Ur Leukocyte Esterase (Negative) U Hyaline Cast (Auto) (0-2) /LPF Urine Microscopic RBC (0-5) /HPF Urine Microscopic WBC (0-5) /HPF Ur Epithelial Cells (None Seen) /HPF Urine Bacteria (None Seen) /HPF Urine Culture Reflexed (NO) - Progress Progress: unchanged Counseled pt/family regarding: lab results, diagnosis, need for follow-up - Progress Progress Note: 12/29/22 19:08 Patient transferred of care to Dr. Love at shift change. He will follow-up on work-up results and make final disposition. (LIT TYLER) Patient endorsed to Dr. Love at approximately [address] Love advised to follow- up on pending laboratory work-up. Testing obtained includes CBC CMP UA lactic acid blood cultures. Patient was afebrile upon arrival. Patient currently afebrile. Lactic acid within normal limits. No leukocytosis. Urinalysis reveals a urinary tract infection. Patient does have some warmth to both legs. Appears to be experiencing early cellulitis. Negative Homans' sign bilaterally. Leg involvement is primarily the anterior aspect of both legs. Both extremities are neurovascular intact distally. Compartments are soft. Cap refill less than 2 seconds. Patient received 2 rounds of 4 mg IV morphine for pain control. Zofran administered as well. Patient resting comfortably. Patient received a 1 g dose of Rocephin IM. Patient declined IV as it would have taken a prolonged period of time and patient states he wanted to get home. A prescription for Keflex was forwarded to patient's pharmacy. Patient understands the importance of follow-up. We will discharge patient home. Patient agrees to follow-up with his primary care doctor within 48 hours for reevaluation. at bedside. They voiced no other complaints or concerns at this time. Portions of this note were created with voice recognition technology. There may be grammatical, spelling, punctuation or sound alike errors 57-year-old male presents to our ED for evaluation of suspected cellulitis of both legs. Patient appears to have clinical cellulitis. There is no systemic manifestations of infection. No fever no leukocytosis. No lactic acidosis. No tachycardia. Patient resting comfortably. IV morphine administered for pain control patient resting comfortably. Complexity of problem addressed is moderate, new diagnosis with uncertain prognosis. No critical care time Complex of data reviewed and analyzed is moderate. Dr. Love reviewed and analyzed laboratory studies and clinically correlated results with patient's clinical presentation. No systemic manifestation of infection or sepsis. Patient has localized early cellulitis which can be treated on an outpatient basis abided early follow-up for reassessment to establish progress. Risk of complication and or risk morbidity/mortality of patient management is high. Patient received IV controlled substance for pain control. A prescription for Keflex was forwarded to patient's pharmacy. We will we will discharge home. Early follow-up will be with patient's primary care doctor. Patient agrees to follow-up within 48 hours. No social determinants of health present to impede follow-up. Time spent to discharge patient is approximately 10 minutes. Vital stable. Patient afebrile. Patient and voiced no other complaints or concerns at this time. Portions of this note were created with voice recognition technology. There may be grammatical, spelling, punctuation or sound alike errors 12/29/22 22:29 (DMITRY LOVE) Medical Desision Making - Independent Historian Additional History obtained from: Spouse - Diagnostic Testing Diagnostic test were ordered, analyzed, and reviewed by me: Yes - Risk of complications The pt has a mod risk of morbidity or mortality based on: Need for prescription drug management - Departure Departure Disposition: Home Critical Care Time: No - Departure Clinical Impression: Cellulitis of both lower extremities, UTI (urinary tract infection) Condition: Stable Referrals: CODY HERNANDEZ [Primary Care Provider] - Follow up/PCP as directed Additional Instructions: Discharge/Care Plan ESAU KAMARA JR TOMMIE was seen on 12/29/22 in the Emergency Room. The patient was counseled regarding Diagnosis,Lab results, Imaging studies, need for follow up and when to return to the Emergency Room. Prescriptions given: Discharge Note I have spoken with the patient and/or caregivers. I have explained the patient's condition, diagnosis and treatment plan based on the information available to me at this time. I have answered the patient's and/or caregiver's questions and addressed any concerns. The patient and/or caregivers have as good understanding of the patient's diagnosis, condition and treatment plan as can be expected at this point. The vital signs have been stable. The patient's condition is stable and appropriate for discharge from the emergency department. The patient will pursue further outpatient evaluation with the primary care physician or other designated or consulting physician as outlined in the discharge instructions. The patient and/or caregivers are agreeable to this plan of care and follow-up instructions have been explained in detail. The patient and/or caregivers have received these instruction. The patient/and or caregivers are aware that any significant change in condition or worsening of symptoms should prompt an immediate return to this or the closest emergency department or call 911. Prescriptions: Cephalexin Mh 500 mg [Keflex 500 mg] 500 mg PO TID #21 cap
[2022-12-29 19:10] VITALS: BP 116/68; PULSE 64; O2SAT 97
[2022-12-29] MEDS ORDERED: Zofran 4 MG/2 ML VIAL IV STA (19:13)
[2022-12-29] MEDS ORDERED: MORPHINE SULFATE 4 MG INJ IV ONE ×2 (19:14→22:26)
[2022-12-29] MEDS ORDERED: MORPHINE SULFATE 4 MG INJ ONE ×2 (19:28→22:28)
[2022-12-29] MEDS ORDERED: Zofran 4 MG/2 ML VIAL ONE (19:28)
[2022-12-29 19:47] LABS: Absolute Neutrophil Ct (ANC) 6.94 x10^3/uL (1.4-6.9); BASOPHIL % 0.8 % (0.0-0.4); Basophil (Absolute #) 0.07 x10^3/uL (0-0.4); Eosinophil % 3.1 % (0.00-5.0); Eosinophil (Absolute #) 0.29 x10^3/uL (0-0.5); Hematocrit 43.6 % (42-50); Hemoglobin 13.8 g/dL (12.5-18.0); IMMATURE GRAN # 0.04 x10^3u/L (0.00-0.03); IMMATURE GRAN % 0.4 % (0.00-0.4); Lymphocyte (Absolute #) 1.18 x10^3/uL (1.0-4.6); Lymphocytes % 12.7 % (24.0-44.0); Mean Cell Volume 92.4 fL (78-100); Mean Corpuscular Hemoglobin 29.2 pg (26-32); Mean Corpuscular Hgb Concent. 31.7 g/dL (32-36); Mean Platelet Volume 9.5 fL (7.5-11.0); Monocyte (Absolute #) 0.76 x10^3/uL (0.0-1.3); Monocytes % 8.2 % (0.0-12.0); Neutrophil % 74.8 % (36.0-66.0); Platelet Count 269 x10^3/uL (150-450); Red Blood Count 4.72 x10^6/uL (4.1-5.6); Red Cell Distribution Width 13.7 % (11.5-14.0); White Blood Count 9.3 x10^3/uL (4.0-10.5)
[2022-12-29 20:00] LABS: ALKALINE PHOSPHATASE 70 U/L (38-126); ANION GAP 13.6 MEQ/L (5-15); BLOOD UREA NITROGEN 15 mg/dL (9-20); CHLORIDE 101 mmol/L (98-107); Calcium 8.3 mg/dL (8.4-10.2); Carbon Dioxide 30 mmol/L (22-30); Creatinine 1 1.01 mg/dL (0.66-1.25); EST GLOMERULAR FILTRATION RATE > 60.0 ML/MIN; Glucose 101 mg/dL (74-106); Potassium 4.6 mmol/L (3.5-5.1); SGOT/AST 25 U/L (17-59); SGPT/ALT 20 U/L (0-50); SODIUM 139 mmol/L (137-145); Total Protein 7.7 g/dL (6.3-8.2)
[2022-12-29 20:43] LABS: Appearance Clear (Clear); Bacteria None Seen /HPF (None Seen); Bilirubin Negative (Negative); Blood Negative (Negative); Epithelial Cells None Seen /HPF (None Seen); Glucose, Urine Negative (Negative); Hyaline Casts NONE SEEN /LPF (0-2); Ketones Negative (Negative); Leukocyte Esterase Moderate (Negative); Nitrite Negative (Negative); Ph 5.5 (4.6-8.0); Protein,Urine Dip Negative (Negative); RBC 0-2 /HPF (0-5); Specific Gravity 1.015 (1.005-1.030); Urobilinogen 0.2 mg/dL (0.2)
[2022-12-29 20:45] LABS: ADD URINE CULTURE? NO (NO)
[2022-12-29] MEDS ORDERED: Rocephin 1000 MG INJ IM ONE (22:24)
[2022-12-29] MEDS ORDERED: Rocephin 1000 MG INJ ONE (22:26)
[2022-12-29] MEDS ORDERED: XYLOCAINE 1% HCL 20 ML MDV ONE (22:26)
== END 2022-12-29 22:49 | disposition home or self-care (01) ==
LOC: ED 17:19
DX: N39.0 Urinary tract infection, site not specified (principal); L03.116 Cellulitis of left lower limb; L03.115 Cellulitis of right lower limb; M79.604 Pain in right leg; I10 Essential (primary) hypertension; I73.9 Peripheral vascular disease, unspecified; Z79.891 Long term (current) use of opiate analgesic; Z79.899 Other long term (current) drug therapy
CPT/HCPCS: 36000; 36415; 80053; 81001; 83605; 85025; 87040; 96372; 96374; 96375; 96376; 99284; J0696; J2270; J2405

== ENCOUNTER 2023-03-10 15:07 | Emergency (ER) | payer MEDICARE ==
[2023-03-10 15:24] VITALS: RESP 20; TEMP 98.1; O2SAT 98
[2023-03-10] MEDS ORDERED: MORPHINE SULFATE 4 MG INJ IV ONE (15:40)
[2023-03-10] MEDS ORDERED: Zofran 4 MG/2 ML VIAL IV ONE (15:40)
--- NOTE | 2023-03-10 15:53 | ERPHSYRPT ---
- History of Present Illness Time Seen by Provider: 03/10/23 15:13 Historian: patient Exam Limitations: no limitations Patient Subjective Stated Complaint: PT states "I have a UTI and am on antibiotics but about two weeks ago I had pain that was in my lower right abdomen and it went into my right testicle, now the pain has moved to my right back and it feels like I need to pee but only pee very little." Triage Nursing Assessment: Pt presented alert and oriented X 3, skin pwd. Pt ambulates with an upright steady gait, able to speak in clear full sentences. Pt resting comfortably on the bed. Physician History: 57-year-old male with a history of hypertension, chronic pain, morbid obesity presented in the ER with chief complaint of right-sided abdominal pain since morning. Patient reports moderate intensity sharp pain initially in the right lower quadrant and now in the right flank area. Reports associated increased urinary frequency and dribbling. Patient reports she recently has taken antibiotics for UTI. Denies any nausea or vomiting. No fever or chills reported. Allergies/Adverse Reactions: Antihistamines - Alkylamine Adverse Reaction (Verified 12/29/22 17:30) Tightness of Throat aspartame Adverse Reaction (Verified 12/29/22 17:30) Swelling of Tongue and Lips codeine Adverse Reaction (Verified 12/29/22 17:30) Home Medications: Telmisartan 80 mg PO DAILY 11/02/15 [History] Oxycodone HCl/Acetaminophen [Oxycodone-Acetaminophen 10-325] 1 tab PO BID PRN 01/20/20 [History] Amlodipine Besylate [Norvasc] 2.5 mg PO DAILY 12/29/20 [History] Baclofen 10 mg [Lioresal 10 mg] 10 mg PO DAILY PRN PRN 12/29/20 [History] Testosterone Cypionate [Testone Cik] 200 mg IM UD 12/29/20 [History] Spironolactone 25 mg [Aldactone 25 MG] 0.5 tab PO DAILY 12/29/22 [History] Hx Tetanus, Diphtheria Vaccination/Date Given: Yes Hx Influenza Vaccination/Date Given: No Hx Pneumococcal Vaccination/Date Given: No Immunizations Up to Date: Yes Travel Risk - International Travel Have you traveled outside of the country in past 3 weeks: No - Coronavirus Screening Are you exhibiting any of the following symptoms?: No Close contact with a COVID-19 positive Pt in past 14-21 Days: No - Vaccine Status Have you recieved a Covid-19 vaccination: Yes [employer]: Moderna - Vaccination Dates Date of 2cond Vaccination (if applicable): 2020 - Review of Systems Constitutional: No Symptoms Eyes: No Symptoms Ears, Nose, & Throat: No Symptoms Respiratory: No Symptoms Cardiac: No Symptoms Abdominal/Gastrointestinal: Abdominal Pain Genitourinary Symptoms: Frequency, Urgency Musculoskeletal: Back Pain Neurological: No Symptoms Endocrine: No Symptoms Hematologic/Lymphatic: No Symptoms - Past Medical History Pertinent Past Medical History: Yes Neurological History: No Pertinent History, Peripheral Neuropathy ENT History: No Pertinent History Cardiac History: Angina, Arrhythmia, Hypertension, Peripheral Vascular Disease Respiratory History: Asthma, COPD Endocrine Medical History: Hypoglycemia Musculoskeletal History: Degenerative Disk Disease, Osteoarthritis, Other GI Medical History: Gallbladder Disease, Hernia History: No Pertinent History Psycho-Social History: No Pertinent History Male Reproductive Disorders: No Pertinent History Other Medical History: Cervical fusion in late - Past Surgical History Past Surgical History: Yes Neuro Surgical History: No Pertinent History Cardiac: No Pertinent History Respiratory: No Pertinent History Gastrointestinal: No Pertinent History Genitourinary: No Pertinent History Musculoskeletal: No Pertinent History Male Surgical History: No Pertinent History Other Surgical History: Patient had T&A as a child 1970. Patient states he had a fractured tail bone, but could not remember when. Patient had left lower leg surgery to remove an infected splinter from leg in 2005. Patient also states he had a hernia as a child but does not remember what was done about. - Social History Smoking Status: Never smoker How long have you smoked: occational Exposure to second hand smoke: No Drug Use: none Patient Lives Alone: No - Nursing Vital Signs Nursing Vital Signs: Initial Vital Signs Temperature 98.1 F 03/10/23 15:17 Pulse Rate 56 L 03/10/23 15:17 Respiratory Rate 20 03/10/23 15:17 Blood Pressure 142/59 03/10/23 15:17 O2 Sat by Pulse Oximetry 98 03/10/23 15:17 Pain Scale Pain Intensity 0 - Physical Exam General Appearance: no apparent distress, alert Eye Exam: PERRL/EOMI Ears, Nose, Throat Exam: normal ENT inspection, TMs normal, pharynx normal, moist mucous membranes Neck Exam: normal inspection, non-tender, supple, full range of motion Respiratory Exam: normal breath sounds, lungs clear Cardiovascular Exam: regular rate/rhythm, normal heart sounds Gastrointestinal/Abdomen Exam: soft, normal bowel sounds, tenderness (Right lower quadrant/flank) Back Exam: normal inspection, normal range of motion Extremity Exam: normal inspection, normal range of motion Neurologic Exam: alert, oriented x 3, cooperative Skin Exam: normal color SpO2 Interpretation: normal SpO2: 98 O2 Delivery: Room Air Ordered Tests: Active Orders 24 hr Category Date Time Status IV Insertion STAT Care 03/10/23 15:40 Active NPO (ED) STAT Care 03/10/23 15:40 Active ABDOMEN AND PELVIS W CONTRAST [CT] Stat Exams 03/10/23 15:40 Completed CBC W DIFF Stat Lab 03/10/23 15:50 Completed CMP Stat Lab 03/10/23 15:50 Completed LIPASE Stat Lab 03/10/23 15:50 Completed UA W/RFX UR CULTURE Stat Lab 03/10/23 15:40 Completed Medication Summary Discontinued Medications Generic Name Dose Route Start Last Admin Trade Name Clemencia PRN Reason Stop Dose Admin Morphine Sulfate 4 mg 03/10/23 15:40 03/10/23 15:55 Morphine Sulfate 4 Mg/Ml Injection IV 03/10/23 15:41 4 mg STAT ONE Administration Morphine Sulfate Confirm 03/10/23 15:54 Morphine Sulfate 4 Mg/Ml Injection Administered 03/10/23 15:55 Dose 4 mg .ROUTE .STK-MED ONE Ondansetron HCl 4 mg 03/10/23 15:40 03/10/23 15:55 Ondansetron Hcl 4 Mg/2 Ml Vial IV 03/10/23 15:41 4 mg STAT ONE Administration Ondansetron HCl Confirm 03/10/23 15:54 Ondansetron Hcl 4 Mg/2 Ml Vial Administered 03/10/23 15:55 Dose 4 mg .ROUTE .STK-MED ONE Lab/Rad Data: Laboratory Result Diagrams 03/10/23 15:50 03/10/23 15:50 Laboratory Results 03/10/23 03/10/23 03/10/23 Range/Units 15:50 15:50 15:40 WBC 9.6 (4.0-10.5) x10^3/uL RBC 4.94 (4.1-5.6) x10^6/uL Hgb 14.2 (12.5-18.0) g/dL Hct 44.3 (42-50) % MCV 89.7 (78-100) fL MCH 28.7 (26-32) pg MCHC 32.1 (32-36) g/dL RDW 13.4 (11.5-14.0) % Plt Count 257 (150-450) x10^3/uL MPV 9.3 (7.5-11.0) fL Gran % 75.4 H (36.0-66.0) % Immature Gran % (Auto) 0.4 (0.00-0.4) % Nucleat RBC Rel Count 0.0 (0.00-0.1) % Eos # (Auto) 0.17 (0-0.5) x10^3/uL Immature Gran # (Auto) 0.04 H (0.00-0.03) x10^3u/L Absolute Lymphs (auto) 1.36 (1.0-4.6) x10^3/uL Absolute Monos (auto) 0.72 (0.0-1.3) x10^3/uL Absolute Nucleated RBC 0.00 (0.00-0.01) x10^3u/L Lymphocytes % 14.2 L (24.0-44.0) % Monocytes % 7.5 (0.0-12.0) % Eosinophils % 1.8 (0.00-5.0) % Basophils % 0.7 (0.0-0.4) % Absolute Granulocytes 7.25 H (1.4-6.9) x10^3/uL Basophils # 0.07 (0-0.4) x10^3/uL Sodium 137 (137-145) mmol/L Potassium 4.1 (3.5-5.1) mmol/L Chloride 100 (98-107) mmol/L Carbon Dioxide 27 (22-30) mmol/L Anion Gap 13.9 (5-15) MEQ/L BUN 16 (9-20) mg/dL Creatinine 0.82 (0.66-1.25) mg/dL Estimated GFR > 60.0 ML/MIN Glucose 99 (74-106) mg/dL Calcium 8.6 (8.4-10.2) mg/dL Total Bilirubin 0.40 (0.2-1.3) mg/dL AST 22 (17-59) U/L ALT 21 (0-50) U/L Alkaline Phosphatase 70 (38-126) U/L Serum Total Protein 7.6 (6.3-8.2) g/dL Albumin 4.3 (3.5-5.0) g/dL Lipase 86 (23-300) U/L Urine Color Yellow (Yellow) Urine Appearance Clear (Clear) Urine pH 7.0 (4.6-8.0) Ur Specific [place] 1.020 (1.005-1.030) Urine Protein Negative (Negative) Urine Glucose (UA) Negative (Negative) mg/dL Urine Ketones Negative (Negative) Urine Blood Negative (Negative) Urine Nitrite Negative (Negative) Urine Bilirubin Negative (Negative) Urine Urobilinogen 0.2 (0.2) mg/dL Ur Leukocyte Esterase Small A (Negative) U Hyaline Cast (Auto) NONE SEEN (0-2) /LPF Urine Microscopic RBC 0-2 (0-5) /HPF Urine Microscopic WBC 6-10 A (0-5) /HPF Ur Epithelial Cells None Seen (None Seen) /HPF Urine Bacteria None Seen (None Seen) /HPF Urine Culture Reflexed NO (NO) - Progress Progress: improved Progress Note: 03/10/23 16:03 57-year-old male with a history of hypertension, chronic pain, morbid obesity presented in the ER with chief complaint of right-sided abdominal pain since morning. Patient reports moderate intensity sharp pain initially in the right lower quadrant and now in the right flank area. Reports associated increased urinary frequency and dribbling. Patient reports she recently has taken antibiotics for UTI. Denies any nausea or vomiting. No fever or chills reported. Patient has tenderness right side. We will give symptomatic treatment and will obtain CT abdomen pelvis along with acute abdomen work-up. 03/10/23 17:23 [id number] Counseled pt/family regarding: lab results, diagnosis, need for follow-up, rad results Medical Desision Making - Risk of complications The pt has a mod risk of morbidity or mortality based on: Need for minor surgical intervention in patient with know risk factors - Departure Departure Disposition: Home Clinical Impression: Acute flank pain, UTI (urinary tract infection) Condition: Stable Critical Care Time: No Referrals: CODY HERNANDEZ [Primary Care Provider] - Follow up with PCP 1 day Instructions: Flank Pain Additional Instructions: follow up with PCP for re evaluation , return to ER for worsening pain /fever /vomiting continue with current antibiotics , take three times a day for 7 days
[2023-03-10 15:54] LABS: Appearance Clear (Clear); Bacteria None Seen /HPF (None Seen); Bilirubin Negative (Negative); Blood Negative (Negative); Epithelial Cells None Seen /HPF (None Seen); Glucose, Urine Negative (Negative); Hyaline Casts NONE SEEN /LPF (0-2); Ketones Negative (Negative); Leukocyte Esterase Small (Negative); Nitrite Negative (Negative); Protein,Urine Dip Negative (Negative); RBC 0-2 /HPF (0-5); Urobilinogen 0.2 mg/dL (0.2)
[2023-03-10] MEDS ORDERED: MORPHINE SULFATE 4 MG INJ ONE (15:54)
[2023-03-10] MEDS ORDERED: Zofran 4 MG/2 ML VIAL ONE (15:54)
[2023-03-10 15:55] LABS: Absolute Neutrophil Ct (ANC) 7.25 x10^3/uL (1.4-6.9); BASOPHIL % 0.7 % (0.0-0.4); Basophil (Absolute #) 0.07 x10^3/uL (0-0.4); Eosinophil % 1.8 % (0.00-5.0); Eosinophil (Absolute #) 0.17 x10^3/uL (0-0.5); Hematocrit 44.3 % (42-50); Hemoglobin 14.2 g/dL (12.5-18.0); IMMATURE GRAN # 0.04 x10^3u/L (0.00-0.03); IMMATURE GRAN % 0.4 % (0.00-0.4); Lymphocyte (Absolute #) 1.36 x10^3/uL (1.0-4.6); Lymphocytes % 14.2 % (24.0-44.0); Mean Cell Volume 89.7 fL (78-100); Mean Corpuscular Hemoglobin 28.7 pg (26-32); Mean Corpuscular Hgb Concent. 32.1 g/dL (32-36); Mean Platelet Volume 9.3 fL (7.5-11.0); Monocyte (Absolute #) 0.72 x10^3/uL (0.0-1.3); Monocytes % 7.5 % (0.0-12.0); Neutrophil % 75.4 % (36.0-66.0); Platelet Count 257 x10^3/uL (150-450); Red Blood Count 4.94 x10^6/uL (4.1-5.6); Red Cell Distribution Width 13.4 % (11.5-14.0); White Blood Count 9.6 x10^3/uL (4.0-10.5)
[2023-03-10 16:04] LABS: ADD URINE CULTURE? NO (NO)
[2023-03-10 16:11] LABS: ALBUMIN 4.3 g/dL (3.5-5.0); ALKALINE PHOSPHATASE 70 U/L (38-126); ANION GAP 13.9 MEQ/L (5-15); BLOOD UREA NITROGEN 16 mg/dL (9-20); CHLORIDE 100 mmol/L (98-107); Calcium 8.6 mg/dL (8.4-10.2); Carbon Dioxide 27 mmol/L (22-30); Creatinine 1 0.82 mg/dL (0.66-1.25); EST GLOMERULAR FILTRATION RATE > 60.0 ML/MIN; Glucose 99 mg/dL (74-106); LIPASE 86 U/L (23-300); Potassium 4.1 mmol/L (3.5-5.1); SGOT/AST 22 U/L (17-59); SGPT/ALT 21 U/L (0-50); SODIUM 137 mmol/L (137-145); Total Protein 7.6 g/dL (6.3-8.2)
[2023-03-10 16:14] VITALS: BP 99/56; PULSE 90
--- NOTE | 2023-03-10 16:43 | XRAY ---
Indication: Right lower quadrant pain. Multiple contiguous axial images obtained through the abdomen and pelvis using 80 cc Isovue 370 contrast. Comparison: April 09, 2018 Lung bases demonstrate minimal subsegmental atelectasis/scarring. No protruded or effusion. Heart not enlarged. Stable small hiatal hernia. Noncontrasted stomach and bowel loops appear nonobstructed again with normal appendix. The remaining scattered descending and sigmoid diverticulosis without diverticulitis. Stable fatty liver. No free fluid/air. Remaining liver, gallbladder, pancreas, spleen, adrenal glands, kidneys, ureters, bladder, and aorta are unremarkable. Osseous structures intact again with minimal/mild degenerative changes throughout thoracolumbar spine. No ventral or inguinal hernias. Impression: 1. Again colonic diverticulosis, fatty liver, hiatal hernia, and degenerative spondylosis. 2. Remaining CT abdomen/pelvis with contrast exam continues to be negative.
== END 2023-03-10 17:43 | disposition home or self-care (01) ==
LOC: ED 15:07
DX: N39.0 Urinary tract infection, site not specified (principal); R10.31 Right lower quadrant pain; R10.9 Unspecified abdominal pain; R35.0 Frequency of micturition; I10 Essential (primary) hypertension; Z79.891 Long term (current) use of opiate analgesic; Z79.899 Other long term (current) drug therapy
CPT/HCPCS: 36000; 36415; 74177; 80053; 81001; 83690; 85025; 96374; 96375; 99284; J2270; J2405

== ENCOUNTER 2023-08-03 10:58 | Day surgery (SDC) | payer MEDICARE ==
[2023-08-03] MEDS ORDERED: LIDOCAINE HCL 2% 100 MG/5 ML IJ ONE (10:59)
[2023-08-03] MEDS ORDERED: DIPRIVAN 200 MG/20 ML IV ONE (14:36)
--- NOTE | 2023-08-03 15:02 | XRAY ---
Indication: Bilateral L3-L5 MBB Intraoperative fluoroscopy provided for 16 seconds. Single digital spot image submitted for interpretation demonstrates posterior needle tips projecting over the expected left and right L3-L5 nerve roots. Correlate with intraoperative findings/report.
[2023-08-03] MEDS ORDERED: Lactated Ringers 1,000 ML IV ONE (15:51)
--- NOTE | 2023-08-03 16:56 | XRAY ---
16 seconds of fluoroscopy was used in surgery for a bilateral L3-L5 MBB.
== END 2023-08-03 15:05 | disposition home or self-care (01) ==
LOC: SDC-PAIN 10:58
PROVIDERS: ATTEND Psychiatry & Neurology Pain Medicine
DX: M47.816 Spondylosis without myelopathy or radiculopathy, lumbar region (principal); Z79.899 Other long term (current) drug therapy
CPT/HCPCS: 64493; 64494; 72020; 77002; 82947; J2704

== ENCOUNTER 2023-08-24 08:38 | Day surgery (SDC) | payer MEDICARE, SELFPAY ==
[2023-08-24] MEDS ORDERED: LIDOCAINE HCL 2% 100 MG/5 ML IJ ONE (08:39)
[2023-08-24] MEDS ORDERED: Depo-Medrol 40 MG/ML IM ONE (08:39)
[2023-08-24] MEDS ORDERED: XYLOCAINE-MPF 1% 5ML SDV IJ ONE (08:39)
[2023-08-24] MEDS ORDERED: Lactated Ringers 1,000 ML IV ONE (13:45)
--- NOTE | 2023-08-24 14:39 | XRAY ---
Indication: Bilateral L4-S1 MBB. Intraoperative fluoroscopy provided 40 seconds. 2 digital spot images submitted for interpretation demonstrates posterior needle tips projecting over the expected left and right L4-S1 nerve roots. Correlate with intraoperative findings/report.
--- NOTE | 2023-08-24 15:10 | XRAY ---
40 seconds of fluoroscopy was used in surgery for a bilateral L4-S1 MBB.
== END 2023-08-24 12:43 | disposition home or self-care (01) ==
LOC: SDC-PAIN 08:38
PROVIDERS: ATTEND Psychiatry & Neurology Pain Medicine
DX: M47.816 Spondylosis without myelopathy or radiculopathy, lumbar region (principal)
CPT/HCPCS: 64493; 64494; 72020; 77002; J1030; Q9966

== ENCOUNTER 2023-09-21 15:39 | Day surgery (SDC) | payer MEDICARE ==
[2023-09-21] MEDS ORDERED: BUPIVACAINE 0.5% VIAL IJ ONE (15:40)
[2023-09-21] MEDS ORDERED: Depo-Medrol 40 MG/ML IM ONE (15:40)
[2023-09-21] MEDS ORDERED: XYLOCAINE-MPF 1% 5ML SDV IJ ONE (15:40)
[2023-09-21] MEDS ORDERED: Lactated Ringers 1,000 ML IV ONE (17:16)
--- NOTE | 2023-09-21 19:35 | XRAY ---
Indication: Bilateral L4-S1 MBB. Intraoperative fluoroscopy provided for 50 seconds. 3 digital spot image submitted for interpretation demonstrates posterior needle tips projecting over the expected left and right L4-S1 nerve roots. Correlate with intraoperative findings/report.
--- NOTE | 2023-09-22 12:16 | XRAY ---
50 seconds of fluoroscopy was used in surgery for a bilateral L4-S1 MBB.
== END 2023-09-21 18:20 | disposition home or self-care (01) ==
LOC: SDC-PAIN 15:39
PROVIDERS: ATTEND Psychiatry & Neurology Pain Medicine
DX: M47.816 Spondylosis without myelopathy or radiculopathy, lumbar region (principal)
CPT/HCPCS: 64493; 64494; 72020; 77002; J1030; Q9966

== ENCOUNTER 2023-10-05 13:46 | Day surgery (SDC) | payer MEDICARE ==
[2023-10-05] MEDS ORDERED: Depo-Medrol 40 MG/ML IM ONE (13:47)
[2023-10-05] MEDS ORDERED: BUPIVACAINE 0.5% VIAL IJ ONE (13:47)
[2023-10-05] MEDS ORDERED: LIDOCAINE HCL 1% 50 MG/5 ML VL PF IJ ONE (13:47)
[2023-10-05] MEDS ORDERED: Lactated Ringers 1,000 ML IV ONE (18:17)
--- NOTE | 2023-10-05 20:34 | XRAY ---
Indication: Right L4-S1 RFA. Intraoperative fluoroscopy provided for 40 seconds. 3 digital spot image submitted for interpretation demonstrates posterior needle tips projecting over the expected right L4-S1 nerve roots. Correlate with intraoperative findings/report.
--- NOTE | 2023-10-06 09:20 | XRAY ---
40 seconds of fluoroscopy was used in surgery for a right L4-S1 RFA.
== END 2023-10-05 18:30 | disposition home or self-care (01) ==
LOC: SDC-PAIN 13:46
PROVIDERS: ATTEND Psychiatry & Neurology Pain Medicine
DX: M47.816 Spondylosis without myelopathy or radiculopathy, lumbar region (principal)
CPT/HCPCS: 64635; 64636; 72100; 77002; J1030; J2001

== ENCOUNTER 2023-10-12 15:19 | Day surgery (SDC) | payer MEDICARE ==
[2023-10-12] MEDS ORDERED: Depo-Medrol 40 MG/ML IM ONE (15:20)
[2023-10-12] MEDS ORDERED: BUPIVACAINE 0.5% VIAL IJ ONE (15:20)
[2023-10-12] MEDS ORDERED: LIDOCAINE HCL 1% 50 MG/5 ML VL PF IJ ONE (15:20)
[2023-10-12] MEDS ORDERED: Lactated Ringers 1,000 ML IV ONE (16:32)
--- NOTE | 2023-10-12 18:35 | XRAY ---
Indication: Left L4-S1 RFA. Intraoperative fluoroscopy provided for 29 seconds. 3 digital spot image submitted for interpretation demonstrates posterior needle tips projecting over the expected left L4-S1 nerve roots. Correlate with intraoperative findings/report.
--- NOTE | 2023-10-13 12:45 | XRAY ---
29 seconds of fluoroscopy was used in surgery for a left L4-S1 RFA.
== END 2023-10-12 17:20 | disposition home or self-care (01) ==
LOC: SDC-PAIN 15:19
PROVIDERS: ATTEND Psychiatry & Neurology Pain Medicine
DX: M47.816 Spondylosis without myelopathy or radiculopathy, lumbar region (principal)
CPT/HCPCS: 64635; 64636; 72100; 77002; J1030; J2001

== ENCOUNTER 2024-01-11 08:52 | Day surgery (SDC) | payer MEDICARE ==
[2024-01-11] MEDS ORDERED: BUPIVACAINE 0.5% VIAL IJ ONE (08:53)
[2024-01-11] MEDS ORDERED: XYLOCAINE-MPF 1% 5ML SDV IJ ONE (08:53)
[2024-01-11] MEDS ORDERED: Depo-Medrol 40 MG/ML IM ONE (08:53)
[2024-01-11] MEDS ORDERED: DIPRIVAN 200 MG/20 ML IV ONE (11:25)
--- NOTE | 2024-01-11 11:56 | XRAY ---
Indication: Bilateral SI joint injection. Intraoperative fluoroscopy provided for 28 seconds. 4 digital spot image submitted for interpretation demonstrates posterior needle tips projecting over the expected left and right SI joints. Small amount of contrast injected for needle tip placement. Correlate with intraoperative findings/report.
--- NOTE | 2024-01-11 12:55 | XRAY ---
28 seconds of fluoroscopy was used in surgery for a bilateral sacroiliac joint injection.
== END 2024-01-11 11:54 | disposition home or self-care (01) ==
LOC: SDC-PAIN 08:52
PROVIDERS: ATTEND Psychiatry & Neurology Pain Medicine
DX: M46.1 Sacroiliitis, not elsewhere classified (principal)
CPT/HCPCS: 27096; 72202; 77002; G0260; J1010; J2704; Q9966

== ENCOUNTER 2024-04-04 14:35 | Day surgery (SDC) | payer MEDICARE ==
[2024-04-04] MEDS ORDERED: Depo-Medrol 40 MG/ML IM ONE (14:36)
[2024-04-04] MEDS ORDERED: LIDOCAINE HCL 1% 50 MG/5 ML VL PF IJ ONE (14:36)
[2024-04-04] MEDS ORDERED: Sodium Chloride 0.9(Preservative Free) 10 ML IJ ONE (14:36)
[2024-04-04] MEDS ORDERED: Lactated Ringers 1,000 ML IV ONE (15:38)
--- NOTE | 2024-04-04 16:47 | XRAY ---
Indication: Lumbar ANJANA. Intraoperative fluoroscopy provided for 17 seconds. 2 digital spot images submitted for interpretation demonstrates posterior needle tip projecting posterior to L4-L5 interspace. No contrast visualized. Correlate with intraoperative findings/report.
--- NOTE | 2024-04-04 17:09 | XRAY ---
17 seconds of fluoroscopy was used in surgery for a lumbar ANJANA.
== END 2024-04-04 15:10 | disposition home or self-care (01) ==
LOC: SDC-PAIN 14:35
PROVIDERS: ATTEND Psychiatry & Neurology Pain Medicine
DX: M54.16 Radiculopathy, lumbar region (principal)
CPT/HCPCS: 62323; 72100; 77003; J2001; Q9966

== ENCOUNTER 2024-05-16 14:54 | Day surgery (SDC) | payer MEDICARE, SELFPAY ==
[2024-05-16] MEDS ORDERED: LIDOCAINE HCL 1% AMPUL 5 ML IJ ONE (14:55)
[2024-05-16] MEDS ORDERED: Depo-Medrol 40 MG/ML IM ONE (14:55)
[2024-05-16] MEDS ORDERED: BUPIVACAINE 0.5% VIAL IJ ONE (14:55)
--- NOTE | 2024-05-16 20:51 | XRAY ---
Indication: Left knee injection. Intraoperative fluoroscopy provided for 6 seconds. Single digital spot images submitted for interpretation demonstrates needle tip projecting over left femur intercondylar notch. Small amount of contrast injected for both needle tip placement. Correlate with intraoperative findings/report.
--- NOTE | 2024-05-17 09:55 | XRAY ---
6 seconds of fluoroscopy were used in surgery for a left intra-articular knee injection.
== END 2024-05-16 17:55 | disposition home or self-care (01) ==
LOC: SDC-PAIN 14:54
PROVIDERS: ATTEND Psychiatry & Neurology Pain Medicine
DX: M17.12 Unilateral primary osteoarthritis, left knee (principal)
CPT/HCPCS: 20550; 20610; 73560; 77002; Q9966

== ENCOUNTER 2024-10-31 12:47 | Day surgery (SDC) | payer MEDICARE ==
[2024-10-31] MEDS ORDERED: Depo-Medrol 40 MG/ML IM ONE (12:48)
[2024-10-31] MEDS ORDERED: Sodium Chloride 0.9(Preservative Free) 10 ML IJ ONE (12:48)
[2024-10-31] MEDS ORDERED: LIDOCAINE HCL 1% AMPUL 5 ML IJ ONE (12:48)
--- NOTE | 2024-10-31 16:48 | XRAY ---
Indication: Lumbar ANJANA. Intraoperative fluoroscopy provided for 21 seconds. 2 digital spot image submitted for interpretation demonstrates posterior needle tip projecting posterior to lateral lumbar segment. Small amount of contrast injected for needle tip placement. Correlate with intraoperative findings/report.
--- NOTE | 2024-10-31 16:50 | XRAY ---
21 seconds of fluoroscopy was used in surgery for a lumbar ANJANA.
== END 2024-10-31 16:36 | disposition home or self-care (01) ==
LOC: SDC-PAIN 12:47
PROVIDERS: ATTEND Psychiatry & Neurology Pain Medicine
DX: M54.16 Radiculopathy, lumbar region (principal)
CPT/HCPCS: 62323; 72100; Q9966

== ENCOUNTER 2025-04-10 15:31 | Day surgery (SDC) | payer MEDICARE, SELFPAY ==
[2025-04-10] MEDS ORDERED: BUPIVACAINE 0.5% VIAL IJ ONE (15:32)
[2025-04-10] MEDS ORDERED: LIDOCAINE HCL 1% 50 MG/5 ML VL IJ ONE (15:32)
[2025-04-10] MEDS ORDERED: methylPREDNISolone acetate IM ONE (15:32)
[2025-04-10] MEDS ORDERED: Lactated Ringers 1,000 ML IV ONE (16:23)
--- NOTE | 2025-04-10 19:21 | XRAY ---
Indication: Left L4-S1 RFA. Intraoperative fluoroscopy provided for 29 seconds. 4 digital spot image submitted for interpretation demonstrates posterior needle tips projecting over expected left L4-S1 nerve roots. Correlate with intraoperative findings/report.
--- NOTE | 2025-04-11 18:23 | XRAY ---
29 seconds of fluoroscopy was used in surgery for a left L4-S1 RFA.
== END 2025-04-10 16:55 | disposition home or self-care (01) ==
LOC: SDC-PAIN 15:31
PROVIDERS: ATTEND Psychiatry & Neurology Pain Medicine
DX: M47.817 Spondylosis without myelopathy or radiculopathy, lumbosacral region (principal)

== ENCOUNTER 2025-04-24 14:52 | Day surgery (SDC) | payer MEDICARE, SELFPAY ==
[2025-04-24] MEDS ORDERED: LIDOCAINE HCL 1% 50 MG/5 ML VL IJ ONE (14:53)
[2025-04-24] MEDS ORDERED: methylPREDNISolone acetate IM ONE (14:53)
[2025-04-24] MEDS ORDERED: BUPIVACAINE 0.5% VIAL IJ ONE (14:53)
[2025-04-24] MEDS ORDERED: Lactated Ringers 1,000 ML IV ONE (18:13)
--- NOTE | 2025-04-24 19:48 | XRAY ---
Indication: Right L4-S1 RFA. Intraoperative fluoroscopy provided for 43 seconds. 4 digital spot image submitted for interpretation demonstrates posterior needle tips projecting expected right L4-S1 nerve roots. Correlate with intraoperative findings/report.
--- NOTE | 2025-04-25 10:57 | XRAY ---
43 seconds of fluoroscopy used in surgery for a right L4-S1 RFA.
== END 2025-04-24 17:47 | disposition home or self-care (01) ==
LOC: SDC-PAIN 14:52
PROVIDERS: ATTEND Psychiatry & Neurology Pain Medicine
DX: M47.817 Spondylosis without myelopathy or radiculopathy, lumbosacral region (principal)